=== PATIENT | female | born 2000 | race Caucasian/White ===

== ENCOUNTER 2020-01-09 12:44 | Emergency (ER) | payer MEDICAID, SELFPAY ==
[2020-01-09 12:59] VITALS: BP 120/60; PULSE 100; RESP 18; TEMP 36.1; O2SAT 98; BMI 23.3
--- NOTE | 2020-01-09 13:00 | XR_ITS ---
EXAMINATION: XR ANKLE, LEFT CLINICAL INFORMATION: Pain, no injury COMPARISON: None TECHNIQUE: AP, lateral, and mortise views of the left ankle. FINDINGS: There is no acute fracture or dislocation. There is normal bone mineral density. No erosions. The ankle mortise is intact. There is soft tissue swelling around the ankle/hindfoot. IMPRESSION: No acute bony abnormality of the left ankle. Soft tissue swelling around the ankle/hindfoot.
[2020-01-09] MEDS: Azithromycin 500 MG TABLET 1000 MG PO (13:37)
[2020-01-09] MEDS: Lidocaine HCl 1 % MPF 5 ML VIAL SUBCUT (13:39)
[2020-01-09 13:40] LABS: Glucose Urine UA NEG (NEG); Leukocyte Esterase Urine 1+ (NEG); Nitrite Urine POS (NEG); Urine Blood 3+ (NEG); Urine Ketones NEG (NEG); Urine Protein NEG (NEG-TRACE)
[2020-01-09 13:41] LABS: Appearance Urine CLOUDY; Color Urine YELLOW
[2020-01-09 13:43] LABS: UPreg QC Valid YES; Urine Pregnancy NEGATIVE (NEGATIVE)
[2020-01-09] MEDS: cefTRIAXone sodium 250 MG VIAL IM (13:44)
[2020-01-09 13:53] LABS: Bacteria Urine 4+ /LPF; Squamous Epithelial Cell Urine 4+ /LPF; Trichomonas Urine NOTED
--- NOTE | 2020-01-09 13:54 | ED_ITS ---
HPI - Female Genitourinary General Chief complaint: Urogenital-Female Stated complaint: std check l ankle pain Time Seen by Provider: 01/09/20 13:00 Source: patient Mode of arrival: ambulatory Limitations: no limitations History of Present Illness HPI Narrative: otherwise healthy 19-year-old female who is A0 her child is about 2 years old she otherwise denies any medical problems not currently taking other medications she presents today with multiple complaints 1. She reports that 1 of her friends whom is currently dating her ex boyfriend who she had intermittent relationship with and last time she had intercourse with him was in October but her friend called her today and told her that she had contracted chlamydia from her friend. States this made her concerned she wants to get tested and treated. She denies any symptoms in relation to this. No dysuria, vaginal discharge, lesions or rash. 2. She reports she has had left ankle pain for little over a year and a half and since she is here for this will likely take care of this as well. States he does not recall any injury but there is swelling and pain to the lateral of the ankle. She states that this has been going on for again little under 2 years. There is no obvious injury. She will have swelling and tenderness . There is no redness. No open areas. Patient : No Related Data Previous Rx's Medication Instructions Recorded nitrofurantoin monohyd/m-cryst 100 mg PO Q12H 5 Days #10 cap 01/09/20 [Macrobid] Allergies Allergy/AdvReac Type Severity Reaction Status Date / Time No Known Allergies Allergy Verified 01/09/20 13:01 [No Known Allergies*] Review of Systems Review of Systems: Constitutional: No Weight loss, No Fever, No Chills, No Night Sweats, No Fatigue, No Malaise ENT/Mouth: No Hearing loss, No Ear Pain, No Nasal Congestion, No Sinus Pain, No Hoarseness, No sore throat, No Rhinorrhea, No Swallowing Difficulty Eyes: No Eye Pain, No Swelling, No Redness, No Foreign Body, No Discharge, No Vision Changes Cardiovascular: No Chest Pain, No SOB, No Dyspnea on Exertion, No Orthopnea, No Edema, No Palpitations Respiratory: No Cough, No Sputum, No Wheezing, No Smoke Exposure, No Dyspnea Gastrointestinal: No Nausea, No Vomiting, No Diarrhea, No Constipation, No abdominal Pain, No Hematochezia, No Melena Genitourinary: no irregular bleeding, No Dysuria, No Urinary Frequency, No Hematuria, No Urinary Incontinence, No Urgency, No Flank Pain, No Urinary Flow Changes, No Hesitancy Musculoskeletal: As nnoted per HPI No Myalgias, No Joint Swelling Skin: No Skin Lesions, No rash Neuro: No Weakness, No Numbness, No Paresthesias, No Loss of Consciousness, No Dizziness, No Headache Psych: No Social Issues Heme/Lymph: No Bruising, No Bleeding,No Lymphadenopathy Endocrine: No Polyuria, No Polydipsia, No Temperature Intolerance Yes all other systems are reviewed and are negative [facility] Past Medical History Attestation statement: The following information was validated with the patient. Medical History (Updated 01/09/20 @ 14:07 by Mina Estrada NP) No known health problems No known health problems Social History Social History Advance Directives: No Advance Directives Information Provided: No Physical Exam Vital Signs: Vital Signs: Vital Signs Temp Pulse Resp BP Pulse Ox 01/09/20 12:59 97.0 F 100 18 120/60 98 Body Mass Index 23.3 reviewed Const: General: cooperative and healthy appearing; No acute distress or intoxicated appearing Nutritional Appearance: average body habitus Orientation/consciousness: patient oriented x3 Chest: Chest palpation & inspection: normal inspection of the chest Resp: Effort & Inspection: normal respiratory effort Cardio: Jugular venous distension: no JVD GI: Inspection: Yes normal to inspection Percussion: Yes normal to percussion Auscultation: normal bowel sounds : General: Yes no CVA tenderness Back/Spine/Pelvis: Back: no CVA tenderness Skin: General skin exam: no rashes or lesions noted Neuro: General: patient oriented x3 Extrem: General: Yes normal to inspection Course Course Course Narrative: Self swab for BV/ CT Claire. Requesting empiric treatment for chlamydia/gonorrhea. We will go ahead and treat her with ceftriaxone / azithromycin. UA appears overtly infected with positive nitrate although she is asymptomatic. Given azithromycin/ ceftriaxone here. Will discharge with Macrobid pending culture. Advised to abstain from any further sexual activity until she is cleared at health center for full panel STI testing. She will call [facility] for full panel STD testing. In relation to the x-ray there is no acute findings. Localized swelling unclear of etiology. No infectious process. Will refer her to her GP/Ortho.Stable for discharge. MDM - Female Genitourinary Lab Data Labs: Lab Results 01/09/20 01/09/20 Range/Units 13:23 13:23 Urine Color YELLOW Urine Appearance CLOUDY Urine pH 6.0 (5.0-8.0) Ur Specific [place] 1.020 (1.005-1.025) Urine Protein NEG (NEG-TRACE) MG/DL Urine Glucose (UA) NEG (NEG) MG/DL Urine Ketones NEG (NEG) MG/DL Urine Blood 3+ H (NEG) Urine Nitrite POS H (NEG) Ur Leukocyte Esterase 1+ H (NEG) Urine RBC 5-9 H (0) /HPF Urine WBC 5-9 H (0-4) /HPF Ur Squamous Epith Cells 4+ /LPF Urine Bacteria 4+ /LPF Urine Trichomonas NOTED Urine Test NEGATIVE (NEGATIVE) Discharge Plan Discharge Clinical Impression: Sexually transmitted disease (STD), Urinary tract infection, Acute ankle pain Patient Disposition: Home, Self-Care Instructions: Sexually Transmitted Diseases (ED), Arthralgia (ED) Additional Instructions: please follow-up with the health center as discussed for full panel STD testing today you were evaluated for 2 common STDs and treated empirically pending the results Take medication prescribed Return if any concerns or worsening symptoms Thank you Prescriptions: New nitrofurantoin monohyd/m-cryst [Macrobid] 100 mg capsule 100 mg PO Q12H 5 Days Qty: 10 RF: 0 Referrals: Physician,Unknown [Primary Care Provider] - 2 days ( your primary care doctor [facility] )
[2020-01-09 15:26] LABS: CT PCR NOT DETECTED (Not Detect.); NG PCR DETECTED (Not Detect.)
[2020-01-11 12:17] LABS: BV Int Neg Control Negative (Negative); BV Int Pos Control Positive (Positive)
== END 2020-01-09 14:21 | disposition home or self-care (01) ==
PROVIDERS: Nurse Practitioner Primary Care; Emergency Provider Emergency Medicine
DX: Z20.2 Contact with and (suspected) exposure to infections with a predominantly sexual mode of transmission (principal); N39.0 Urinary tract infection, site not specified; M25.572 Pain in left ankle and joints of left foot
CPT/HCPCS: 73610; 81001; 81025; 87480; 87491; 87510; 87591; 87660; 96372; 99283; 99284; J0696

== ENCOUNTER 2020-08-17 13:29 | Emergency (ER) | payer MEDICAID, SELFPAY ==
--- NOTE | ~2020-08-17 | XR_ITS ---
EXAMINATION: RIGHT HAND AND WRIST. CLINICAL INFORMATION: Trauma and pain. COMPARISON: None TECHNIQUE: 4 views. FINDINGS: There is no visible fracture, dislocation or subluxation seen. The joint spaces are maintained normal. The soft tissues are normal. XR/XR hand wrist RT IMPRESSION: Unremarkable right hand and wrist exam.
[2020-08-17 13:43] VITALS: BP 140/72; PULSE 120; PULSE 91; RESP 20; TEMP 36.2; O2SAT 100; O2SAT 99; BMI 24.7
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
--- NOTE | 2020-08-17 15:30 | PC.NURSE ---
Abe wrap applied to right wrist for comfort.
== END 2020-08-17 15:39 | disposition home or self-care (01) ==
PROVIDERS: Emergency Provider Emergency Medicine
DX: S09.90XA Unspecified injury of head, initial encounter (principal); S69.91XA Unspecified injury of right wrist, hand and finger(s), initial encounter; G44.309 Post-traumatic headache, unspecified, not intractable; M25.531 Pain in right wrist; Y04.8XXA Assault by other bodily force, initial encounter; Y93.9 Activity, unspecified; Y92.009 Unspecified place in unspecified non-institutional (private) residence as the place of occurrence of the external cause; Y99.9 Unspecified external cause status; Z79.899 Other long term (current) drug therapy
CPT/HCPCS: 73110; 73130; 99283

== ENCOUNTER 2021-10-10 08:03 | Outpatient (REF) | payer MEDICAID, SELFPAY | END 2021-10-10 08:04 | disposition home or self-care (01) | LOC: HO.HOSX 08:03 | PROVIDERS: Visit Provider Physician Assistant | DX: Z13.89 Encounter for screening for other disorder (principal) ==

== ENCOUNTER 2022-03-09 05:53 | Emergency (ER) | payer MEDICAID, SELFPAY ==
[2022-03-09 05:56] VITALS: BP 112/58; BP 136/84; PULSE 106; PULSE 92; RESP 16; TEMP 36.8; O2SAT 95; O2SAT 96; BMI 23.9
--- NOTE | 2022-03-09 06:02 | ED.NAVMDI ---
HPI - Nausea/Vomiting/Diarrhea General Chief complaint: Nausea/Vomiting/Diarrhea Stated complaint: Vomiting since Saturday/?fever Time Seen by Provider: 03/09/22 05:57 Source: patient and EMS Mode of arrival: EMS Limitations: no limitations History of Present Illness HPI Narrative: Patient comes to the emergency room complaining of nausea vomiting and diarrhea for 4 days. Patient states that 5 days ago she was diagnosed with influenza. Patient has been taking TheraFlu, [place] oral and [id number] medications. Patient states that she has no abdominal pain, but she cannot tolerate any p.o. fluids. This morning, patient states that she ate a piece of bread and did not vomit. Related Data Previous Rx's Medication Instructions Recorded nitrofurantoin 100 mg PO Q12H 5 days #10 caps 01/09/20 monohydrate/macrocrystals 100 mg capsule (Macrobid) metronidazole 500 mg tablet 500 mg PO BID BACTERIAL VAGINOSIS 01/13/20 (Flagyl) 7 days #14 tabs naproxen 500 mg tablet (Naprosyn) 500 mg PO BID #20 tabs 08/17/20 acetaminophen 500 mg capsule 500 mg PO Q6H PRN fever or pain 03/09/22 #20 caps loperamide 2 mg capsule 2 mg PO Q6H PRN loose stool #14 03/09/22 caps ondansetron 4 mg disintegrating 4 mg PO Q6H PRN nausea and 03/09/22 tablet vomiting #14 tabs Allergies Allergy/AdvReac Type Severity Reaction Status Date / Time No Known Allergies Allergy Verified 01/09/20 13:01 [No Known Allergies*] Review of Systems Review of Systems: Constitutional : No Weight loss, No Fever, No Chills, No Night Sweats, No Fatigue, No Malaise ENT/Mouth : No Hearing loss, No Ear Pain, No Nasal Congestion, No Sinus Pain, No Hoarseness, No sore throat, No Rhinorrhea, No Swallowing Difficulty Eyes: No Eye Pain, No Swelling, No Redness, No Foreign Body, No Discharge, No Vision Changes Cardiovascular : No Chest Pain, No SOB, No Dyspnea on Exertion, No Orthopnea, No Edema, No Palpitations Respiratory : No Cough, No Sputum, No Wheezing, No Smoke Exposure, No Dyspnea Gastrointestinal : Complaining of nausea, vomiting, diarrhea, no abdominal pain Genitourinary : no irregular bleeding, No Dysuria, No Urinary Frequency, No Hematuria, No Urinary Incontinence, No Urgency, No Flank Pain, No Urinary Flow Changes, No Hesitancy Musculoskeletal : No joint pain, No Myalgias, No Joint Swelling Skin : No Skin Lesions, No rash Neuro : No Weakness, No Numbness, No Paresthesias, No Loss of Consciousness, No Dizziness, No Headache Psych : No Anxiety/Panic, No Depression, No SI/HI/AH/VH, No Social Issues, Heme/Lymph: No Bruising, No Bleeding,No Lymphadenopathy Endocrine : No Polyuria, No Polydipsia, No Temperature Intolerance [facility] Past Medical History Medical History No known health problems No known health problems Social History Social History Alcohol intake: unknown Advance Directives: No Advance Directives Information Provided: Yes Physical Exam Vital Signs: Vital Signs: Last Vital Signs Temp 98.3 F 03/09/22 05:56 Pulse 85 03/09/22 06:38 Resp 16 03/09/22 06:38 BP 107/72 03/09/22 06:38 Pulse Ox 95 03/09/22 06:38 O2 Del Method 03/09/22 06:38 BMI result Body Mass Index 23.9 Const: Other: Appearance: Alert. Oriented X3. No acute distress. Eyes: Pupils equal, round and reactive to light. ENT: Pharynx normal. Neck: Normal inspection. Neck supple. No lymph nodes noted. No crepitus CVS: Normal heart rate and rhythm. Pulses normal. Normal S1 and S2 Respiratory: No respiratory distress. Breath sounds normal. No Wheezing. No rales Abdomen: Soft and nontender. No rigidity. No distention. Skin: Skin warm and dry. Normal skin color. Normal skin turgor. Extremities: No lower extremity edema. No Lacerations. No Rash Neuro: Oriented X 3. No motor deficit. No sensory deficit. Moving all extremities. No slurred speech. CN 2 through 12 grossly intact Psych: calm, cooperative, crying Course Course Course Narrative: Patient receiving IV fluids, loperamide and Zofran. All of patient's labs are pending. Patient's physical exam, patient is not tender, not distended, obstruction not suspected. Patient tested negative for COVID-19. Patient states that she feels better. Discussed the labs with the patient, patient ready for discharge. Medications Administered Generic Name Dose Route Start Last Admin Trade Name Freq PRN Reason Stop Dose Admin Sodium Chloride 2,000 mls @ 999 mls/hr 03/09/22 06:00 03/09/22 06:12 Ns IVCONT 03/09/22 08:00 999 mls/hr .Q2H1M ONE Administration Discontinued Medications Generic Name Dose Route Start Last Admin Trade Name Freq PRN Reason Stop Dose Admin Loperamide HCl 4 mg 03/09/22 06:00 03/09/22 06:18 Loperamide Hcl 2 Mg Capsule PO 03/09/22 06:01 4 mg ONCE ONE Administration Ondansetron HCl 4 mg 03/09/22 06:00 03/09/22 06:18 Ondansetron Hcl 4 Mg/2 Ml Vial IVPUSH 03/09/22 06:01 4 mg ONCE ONE Administration Medical Decision Making Differential Diagnosis Differential Diagnoses: The differential diagnosis associated with the presentation includes (COVID, influenza, gastroenteritis, viral syndrome) Lab Data MDM Lab Attestation statement: I reviewed the patient's lab results. Result Diagrams: 03/09/22 06:10 03/09/22 06:10 Labs: Lab Results 03/09/22 03/09/22 03/09/22 Range/Units 06:10 06:10 06:10 WBC 7.5 (4.8-10.8) X10*3/uL RBC 4.88 (4.20-5.50) X10*6/uL Hgb 14.7 (12.0-16.0) g/dl Hct 42.9 (37.0-47.0) % MCV 87.9 (80.0-98.0) fL MCH 30.1 (27.0-33.0) pg MCHC 34.3 (31.0-35.0) g/dl RDW 12.1 (11.0-16.0) % Plt Count 273 (160-400) X10*3/uL MPV 9.5 (9.4-12.3) fL Immature Gran % (Auto) 0.5 H (0.0-0.4) % Neut % (Auto) 75.5 H (45-73) % Lymph % (Auto) 15.0 L (20-40) % [place] % (Auto) 8.9 (2-11) % Eos % (Auto) 0.0 (0-4) % Baso % (Auto) 0.1 (0-2) % Lymph # (Auto) 1.1 L (1.2-4.9) X10*3/uL [place] # (Auto) 0.7 (0.1-1.2) X10*3/uL Eos # (Auto) 0.0 (0.0-0.4) X10*3/uL Baso # (Auto) 0.0 (0.0-0.2) X10*3/uL Abs Immat Gran (auto) 0.04 H (0.00-0.03) X10*3/uL Absolute Neuts (auto) 5.7 (2.0-8.3) x10*3/uL Absolute Nucleated RBC 0.000 (0.0-0.012) X10*3/uL Nucleated RBC % (auto) 0.0 (0.0-0.2) /100WBC Sodium 138 (135-145) mmol/L Potassium 3.7 (3.3-5.1) mmol/L Chloride 104 (96-108) mmol/L Carbon Dioxide 23 (22-29) mmol/L Anion Gap 15 (12-20) BUN 18 H (9-16) mg/dL Creatinine 0.74 (0.5-1.4) mg/dL Estim Creat Clear Calc 97.8 Estimated GFR > 60 Random Glucose 108 (60-115) mg/dL Calcium 9.3 (8.4-10.2) mg/dL Magnesium 2.3 (1.6-2.6) mg/dL Total Bilirubin 0.7 (0.0-1.0) mg/dL Direct Bilirubin 0.3 (0.0-0.5) mg/dL AST 18 (5-31) U/L ALT 10 (0-31) U/L Alkaline Phosphatase 63 (39-117) U/L Total Protein 8.4 H (6.5-8.0) g/dL Albumin 4.9 (3.5-5.0) g/dL Lipase 26 (8-78) U/L COVID-19 (MAGALYS) Negative (Negative) COVID-19 Clin Com See Note Discharge Plan Discharge Clinical Impression: Nausea vomiting and diarrhea, Acute viral syndrome Patient Disposition: Home, Self-Care Instructions: Acute Nausea and Vomiting (ED), Acute Diarrhea (ED) Additional Instructions: Please follow-up with your primary care physician tomorrow. If you have any worsening or new symptoms, please return to the emergency room or call 911 Prescriptions: New ondansetron 4 mg tablet,disintegrating 4 mg PO Q6H PRN (Reason: nausea and vomiting) Qty: 14 0RF loperamide 2 mg capsule 2 mg PO Q6H PRN (Reason: loose stool) Qty: 14 0RF acetaminophen 500 mg capsule 500 mg PO Q6H PRN (Reason: fever or pain) Qty: 20 0RF No Action nitrofurantoin monohyd/m-cryst [Macrobid] 100 mg capsule 100 mg PO Q12H 5 Days Qty: 10 0RF Rx Instructions: must administer with a meal/food metronidazole [Flagyl] 500 mg tablet 500 mg PO BID 7 Days Qty: 14 0RF naproxen [Naprosyn] 500 mg tablet 500 mg PO BID Qty: 20 0RF
[2022-03-09] MEDS: 0.9 % Sodium Chloride 2,000 ML 999 ML IVCONT (06:12)
[2022-03-09] MEDS: ondansetron HCL 4 MG/2 ML VIAL IVPUSH (06:18)
[2022-03-09] MEDS: Loperamide HCl 2 MG CAPSULE 4 MG PO (06:18)
[2022-03-09 06:20] LABS: MANUAL DIFF FLAG NO
[2022-03-09 06:27] LABS: Basophils Percent Auto 0.1 % (0-2); Hematocrit 42.9 % (37.0-47.0); Hemoglobin 14.7 g/dl (12.0-16.0); Imm Gran Abs Auto 0.04 X10*3/uL (0.00-0.03); Imm Gran Pct Auto 0.5 % (0.0-0.4); Lymphocytes Absolute Auto 1.1 X10*3/uL (1.2-4.9); Mean Corpuscular HGB Conc 34.3 g/dl (31.0-35.0); Mean Corpuscular Hemoglobin 30.1 pg (27.0-33.0); Mean Corpuscular Volume 87.9 fL (80.0-98.0); Mean Platelet Volume 9.5 fL (9.4-12.3); Monocytes Absolute Auto 0.7 X10*3/uL (0.1-1.2); Monocytes Percent Auto 8.9 % (2-11); Neutrophils Absolute Auto 5.7 x10*3/uL (2.0-8.3); Neutrophils Percent Auto 75.5 % (45-73); Platelet Count 273 X10*3/uL (160-400); Red Blood Count 4.88 X10*6/uL (4.20-5.50); Red Cell Distribution Width 12.1 % (11.0-16.0); White Blood Count 7.5 X10*3/uL (4.8-10.8)
[2022-03-09 06:34] LABS: COVID-19 Test Negative (Negative)
[2022-03-09 06:38] VITALS: BP 107/72; PULSE 85; RESP 16; O2SAT 95
[2022-03-09 06:49] LABS: Alanine Aminotransferase 10 U/L (0-31); Albumin Level 4.9 g/dL (3.5-5.0); Alkaline Phosphatase 63 U/L (39-117); Anion Gap 15 (12-20); Aspartate Amino Transferase 18 U/L (5-31); Bilirubin Direct 0.3 mg/dL (0.0-0.5); Bilirubin Total 0.7 mg/dL (0.0-1.0); Blood Urea Nitrogen 18 mg/dL (9-16); Calcium 9.3 mg/dL (8.4-10.2); Carbon Dioxide 23 mmol/L (22-29); Chloride 104 mmol/L (96-108); Creatinine Clr Calc Pharmacy 97.8; Estimated Glomerular Filt Rate > 60; Glucose Random 108 mg/dL (60-115); Lipase 26 U/L (8-78); Magnesium 2.3 mg/dL (1.6-2.6); Potassium 3.7 mmol/L (3.3-5.1); Sodium 138 mmol/L (135-145); Total Protein 8.4 g/dL (6.5-8.0)
[2022-03-09 07:29] LABS: Appearance Urine Clear; Color Urine Dark Yellow; Glucose Urine UA Negative (Negative); Leukocyte Esterase Urine Negative (Negative); Nitrite Urine Negative (Negative); Specific Gravity - Urine >= 1.030 (1.005-1.025); UMIC TRIGGER UACC YES; Urine Blood Moderate (2+) (Negative); Urine Ketones 80 mg/dL (Negative); Urine Protein 300 (3+) mg/dL (Neg-Trace)
[2022-03-09 07:33] LABS: Amphetamine Screen Urine Not Detected (Not Detect); Barbiturates, Urine Not Detected (Not Detect); Benzodiazepines Screen Urine Not Detected (Not Detect); Cannabinoid Screen Urine POSITIVE (Not Detect); Cocaine Screen Urine Not Detected (Not Detect); Fentanyl, urine Not Detected (Not Detect); Opiate Screen Urine Not Detected (Not Detect); Phencyclidine Screen Urine Not Detected (Not Detect)
[2022-03-09 07:38] LABS: Bacteria Urine None Seen (None Seen); RBC Urine >20 /HPF (0-2); WBC Urine 0-5 /HPF (0-5)
== END 2022-03-09 08:04 | disposition home or self-care (01) ==
PROVIDERS: Emergency Provider Emergency Medicine
DX: B34.9 Viral infection, unspecified (principal); R11.2 Nausea with vomiting, unspecified; R19.7 Diarrhea, unspecified; Z20.822 Contact with and (suspected) exposure to COVID-19; F12.90 Cannabis use, unspecified, uncomplicated
CPT/HCPCS: 80048; 80076; 80307; 81001; 83690; 83735; 85025; 87635; 96374; 99284; J2405

== ENCOUNTER 2022-03-10 16:11 | Emergency (ER) | payer MEDICAID, SELFPAY ==
--- NOTE | 2022-03-10 16:35 | ED_ITS ---
HPI - General Adult General Chief complaint: Nausea/Vomiting/Diarrhea Stated complaint: NAUSEA,VOMITINF,FLU LIKE SX PER EMS Time Seen by Provider: 03/10/22 16:34 Source: patient and EMS Mode of arrival: EMS Limitations: no limitations History of Present Illness HPI narrative: Patient is a 21 year old assigned female at with no reported medical history presenting to the emergency department today with nausea and vomiting. Patient states that she was seen here yesterday for vomiting and she was given Zofran but it isn't helping and she is still vomiting. Patient denies any dizziness, lightheadedness, abdominal pain, nausea, vomiting, fever, chills, blurry vision, double vision, loss of vision, chest pain, difficulty breathing, shortness of breath, back pain, night sweats, pain with urination, increased urinary frequency, increased urinary urgency, blood in her urine or stool, syncope or a near syncopal episode, recent trauma or falls, bowel incontinence, bladder incontinence, bowel retention, bladder retention, or any other complaints at this time. Onset (ago): day(s) (4) Severity: mild Severity scale (1-10): 3 Relieving factors: none Exacerbating factors: none Associated symptoms: nausea/vomiting Treatments prior to arrival: none Related Data Previous Rx's Medication Instructions Recorded nitrofurantoin 100 mg PO Q12H 5 days #10 caps 01/09/20 monohydrate/macrocrystals 100 mg capsule (Macrobid) metronidazole 500 mg tablet 500 mg PO BID BACTERIAL VAGINOSIS 01/13/20 (Flagyl) 7 days #14 tabs naproxen 500 mg tablet (Naprosyn) 500 mg PO BID #20 tabs 08/17/20 acetaminophen 500 mg capsule 500 mg PO Q6H PRN fever or pain 03/09/22 #20 caps loperamide 2 mg capsule 2 mg PO Q6H PRN loose stool #14 03/09/22 caps ondansetron 4 mg disintegrating 4 mg PO Q6H PRN nausea and 03/09/22 tablet vomiting #14 tabs promethazine 12.5 mg tablet 12.5 mg PO TID PRN nausea and 03/10/22 vomiting #14 tabs Allergies Allergy/AdvReac Type Severity Reaction Status Date / Time No Known Allergies Allergy Verified 01/09/20 13:01 [No Known Allergies*] Review of Systems Constitutional: Constitutional: Reports no additional constitutional complaints, Denies chills, Denies fever(s) and Denies night sweats Eyes: Eyes: Reports no additional eye complaints, Denies blurry vision, Denies change in vision, Denies diplopia, Denies eye discharge, Denies loss of vision and Denies eye pain ENT: Denies dizziness Cardiovascular: Cardiovascular: Reports no additional cardiovascular complaints, Denies chest pain, Denies lightheadedness, Denies Loss of Consciousness and Denies dyspnea Respiratory: Respiratory: Reports no additional respiratory complaints and Denies dyspnea Gastrointestinal: Gastrointestinal: Reports no additional gastrointestinal complaints, Denies abdominal pain, Denies melena, Denies hematochezia, Denies change in bowel habits, Denies change in stool character, Reports nausea and Reports vomiting Genitourinary: Genitourinary: Denies hematuria, Denies urinary frequency, Denies dysuria, Denies urinary incontinence, Denies urinary hesitancy and Denies urinary urgency Musculoskeletal: Musculoskeletal: Reports no additional musculoskeletal complaints, Denies numbness and Denies tingling Neurologic: Denies dizziness, Denies loss of vision, Denies numbness and Denies tingling Psychiatric: Psychiatric: Reports no additional psychiatric complaints Endocrine: Endocrine: Reports no additional endocrine complaints Hematologic/Lymphatic: Hematologic/Lymphatic: Reports no additional hematologic/lymphatic complaints Allergic/Immunologic: Allergic/Immunologic: Reports no additional allergic/immunologic complaints PMFSH Past Medical History Attestation statement: The following information was validated with the patient. Source: old records reviewed and nursing notes reviewed Medical History No known health problems No known health problems Social History Social History Alcohol intake: never Smoked in Last 30 Days: No Use of substances other than those prescribed or required for medical reasons: Yes Substance Use Type: Marijuana Substance Use Frequency: Daily Advance Directives: No Advance Directives Information Provided: No Physical Exam ED Vital Signs: Vital Signs - 24 hr 03/10/22 16:45 03/10/22 19:47 03/10/22 20:21 Temperature 98.8 F Pulse Rate 83 53 90 Respiratory Rate 18 17 18 Blood Pressure 110/69 107/68 106/58 L Pulse Oximetry 97 94 93 Oxygen Delivery Method Room Air Room Air Nasal Cannula Oxygen Flow Rate 2 BMI result Body Mass Index 23.0 Const General: cooperative, no acute distress, alert and awake Nutritional Appearance: well nourished Orientation/consciousness: patient oriented x3 Limitations: no limitations HENMT Head: Yes normal to inspection and Yes atraumatic Ears: hearing grossly normal bilaterally and external ears normal General nose exam: Normal external nose present, no nasal discharge noted and no epistaxis Face and sinus: Yes normal facial exam, No abrasion and No laceration Mouth: Normal oral and palatal mucosa present, no drooling and no muffled voice Eyes General: appearance normal, both eyes and all related structures Periorbital: periorbital findings normal Eyelids: Yes eyelids normal Conjunctivae: conjunctivae normal Pupils: Equal, round and reactive pupils present EOM: EOMs intact bilaterally Neck Neck: Yes normal visual inspection, Yes full ROM and Yes no lymphadenopathy Chest Chest palpation & inspection: normal inspection of the chest Resp Effort & Inspection: normal respiratory effort and able to speak in complete sentences Auscultation: clear to auscultation bilaterally Cardio Rate: regular rate Rhythm: regular rhythm GI Inspection: Yes normal to inspection Palpation (GI): Soft to palpation, not firm, nontender, no guarding and not rigid Neuro General: patient oriented x3 and moves all extremities Cranial nerves: Yes Equal, round and reactive pupils present Cognition (Neuro): normal cognition Motor exam (neuro): 5/5 motor strength present throughout Sensory Exam: Normal double simultaneous stimulation for sensation Coordination: [id number] test normal Extrem General: Yes normal to inspection, Yes full ROM and Yes capillary refill normal Psych Appearance: grossly normal Mental Status: mental status grossly normal Affect: normal affect Attitude: cooperative Thought process: Normal thought process present Thought content: Normal thought content present Insight: Good insight present (Psych) Medications Administered Discontinued Medications Generic Name Dose Route Start Last Admin Trade Name Freq PRN Reason Stop Dose Admin Benzonatate 100 mg 03/10/22 18:35 03/10/22 20:08 Benzonatate 100 Mg Capsule PO 03/10/22 18:36 Not Given ONCE ONE Sodium Chloride 1,000 mls @ 999 mls/hr 03/10/22 17:00 03/10/22 17:02 Ns IV 03/10/22 18:00 999 mls/hr .Q1H1M MARISELA Administration Promethazine HCl 12.5 mg/ 50.5 mls @ 202 mls/hr 03/10/22 17:52 03/10/22 18:33 Sodium Chloride IV 03/10/22 17:53 202 mls/hr ONCE ONE Administration Ondansetron HCl 4 mg 03/10/22 16:37 03/10/22 16:48 Ondansetron Odt 4 Mg Tab.Rapdis TRANSLINGU 03/10/22 16:38 4 mg ONCE ONE Administration Ondansetron HCl 4 mg 03/10/22 16:56 03/10/22 17:02 Ondansetron Hcl 4 Mg/2 Ml Vial IVPUSH 03/10/22 16:57 4 mg ONCE ONE Administration Medical Decision Making Medical Decision Making [facility] Narrative: Patient is a 21 year old assigned female at with no reported medical history presenting to the emergency department today with nausea and vomiting. Patient's physical exam was unremarkable. Patient's influenza swab was positive. Patient's urine showed a possible UTI however, the patient is denying any symptoms. Will wait for culture to result before prescribing anything. I explained my physical exam findings as well as all test results to the patient. I answered all questions asked by the patient. Patient received IV fluids and IV anti-emetics which she stated helped her symptoms significantly. I stressed the importance of the patient taking her medication as prescribed. I stressed the importance of the patient following up with her primary care provider. I stressed the importance of the patient returning to the emergency department immediately if her symptoms were to worsen or if she] were to develop any dizziness, shortness of breath, difficulty breathing, chest pain, blurry vision, loss of vision, nausea, vomiting, abdominal pain, fever, chills, back pain, or any other complaints. Patient verbalized agreement and understanding with this treatment plan and discharge. Differential Diagnosis Differential Diagnoses: The differential diagnosis associated with the presentation includes influenza Lab Data [facility] Lab Attestation statement: I reviewed the patient's lab results. Labs: Lab Results 03/10/22 03/10/22 03/10/22 Range/Units 16:44 17:39 17:39 Urine Color Dark Yellow Urine Appearance Cloudy Urine pH 6.0 (5.0-9.0) Ur Specific [place] >= 1.030 H (1.005-1.025) Urine Protein 100 (2+) H (Neg-Trace) mg/dL Urine Glucose (UA) Negative (Negative) mg/dL Urine Ketones >=160 (Negative) mg/dL Urine Blood Moderate (2+) H (Negative) Urine Nitrite Negative (Negative) Ur Leukocyte Esterase Trace H (Negative) Urine RBC 11-20 H (0-2) /HPF Urine WBC 6-10 H (0-5) /HPF Ur Squamous Epith Cells >20 (0-2) /HPF Urine Bacteria None Seen (None Seen) Hyaline Casts 0-2 (0-2) /LPF Urine Test NEGATIVE (NEGATIVE) Influenza Type A (PCR) POSITIVE A (Negative) Influenza Type B (PCR) NEGATIVE (Negative) RSV RNA Qual (PCR) NEGATIVE (Negative) SARS-CoV-2 RNA (RT-PCR) NEGATIVE (Negative) Discharge Plan Discharge Clinical Impression: Influenza Patient Disposition: Home, Self-Care Instructions: Influenza (ED) Additional Instructions: Follow up with your primary care provider. Return to the emergency department immediately if your symptoms worsen or if you develop any dizziness, shortness of breath, difficulty breathing, chest pain, blurry vision, loss of vision, nausea, vomiting, abdominal pain, fever, chills, back pain, or any other complaints. Prescriptions: New promethazine 12.5 mg tablet 12.5 mg PO TID PRN (Reason: nausea and vomiting) Qty: 14 0RF Rx Instructions: 3 doses during day; last dose no later than 4 hr before bedtime No Action nitrofurantoin monohyd/m-cryst [Macrobid] 100 mg capsule 100 mg PO Q12H 5 Days Qty: 10 0RF Rx Instructions: must administer with a meal/food metronidazole [Flagyl] 500 mg tablet 500 mg PO BID 7 Days Qty: 14 0RF naproxen [Naprosyn] 500 mg tablet 500 mg PO BID Qty: 20 0RF ondansetron 4 mg tablet,disintegrating 4 mg PO Q6H PRN (Reason: nausea and vomiting) Qty: 14 0RF loperamide 2 mg capsule 2 mg PO Q6H PRN (Reason: loose stool) Qty: 14 0RF acetaminophen 500 mg capsule 500 mg PO Q6H PRN (Reason: fever or pain) Qty: 20 0RF Referrals: [facility] [Provider Group] (Call to establish and follow up with a primary care provider. If you already have a primary care provider, please follow up with them. ) [facility] [Provider Group] (Call to establish and follow up with a primary care provider. If you already have a primary care provider, please follow up with them. ) [facility] [Provider Group] (Call to establish and follow up with a primary care provider. If you already have a primary care provider, please follow up with them. ) Stand Alone Forms: Work/School Release Interventions: ED Discharge Assessment Last Done: 03/10/22 20:33 Discharge Date/Time: 03/10/22 20:35 Print Language: Greek
[2022-03-10 16:42] VITALS: BMI 23.0
[2022-03-10 16:45] VITALS: BP 110/69; PULSE 83; RESP 18; O2SAT 97
[2022-03-10] MEDS: Ondansetron ODT 4 MG TAB.RAPDIS TRANSLINGU (16:48)
[2022-03-10] MEDS: ondansetron HCL 4 MG/2 ML VIAL IVPUSH (17:02)
[2022-03-10] MEDS: 0.9 % Sodium Chloride 1,000 ML 999 ML IV (17:02)
[2022-03-10 17:40] LABS: Influenza A PCR POSITIVE (Negative); Influenza B PCR NEGATIVE (Negative); Resp Syncy Virus RNA Qual PCR NEGATIVE (Negative); SARS COV2 PCR INHOUSE NEGATIVE (Negative)
[2022-03-10 17:48] LABS: UPreg QC Valid YES; Urine Pregnancy NEGATIVE (NEGATIVE)
[2022-03-10 17:49] LABS: Appearance Urine Cloudy; Color Urine Dark Yellow; Glucose Urine UA Negative (Negative); Leukocyte Esterase Urine Trace (Negative); Nitrite Urine Negative (Negative); Specific Gravity - Urine >= 1.030 (1.005-1.025); UMIC TRIGGER UACC YES; Urine Blood Moderate (2+) (Negative); Urine Ketones >=160 mg/dL (Negative); Urine Protein 100 (2+) mg/dL (Neg-Trace)
[2022-03-10 17:52] LABS: Bacteria Urine None Seen (None Seen); Hyaline Casts Urine 0-2 /LPF (0-2); Squamous Epithelial Cell Urine >20 /HPF (0-2); UACC Culture Trigger YES
[2022-03-10 19:47] VITALS: BP 107/68; PULSE 53; RESP 17; TEMP 37.1; O2SAT 94
[2022-03-10 20:21] VITALS: BP 106/58; PULSE 90; RESP 18; O2SAT 93
--- NOTE | 2022-03-10 20:33 | PC.NURSE ---
Last VS entered in error wrong pt
== END 2022-03-10 20:35 | disposition home or self-care (01) ==
PROVIDERS: Physician Assistant Medical; Emergency Provider Emergency Medicine
DX: J11.1 Influenza due to unidentified influenza virus with other respiratory manifestations (principal); R11.2 Nausea with vomiting, unspecified; Z20.822 Contact with and (suspected) exposure to COVID-19; F12.90 Cannabis use, unspecified, uncomplicated
CPT/HCPCS: 0241U; 81001; 81025; 87086; 96374; 96375; 99284; J2405; J2550

== ENCOUNTER 2022-03-14 00:35 | Emergency (ER) | payer MEDICAID, SELFPAY ==
--- NOTE | ~2022-03-14 | XR_ITS ---
EXAMINATION: XR CHEST CLINICAL INFORMATION: Cough COMPARISON: None TECHNIQUE: Frontal view of the chest was obtained. FINDINGS: The lungs are clear with no focal consolidation. No evidence of pneumothorax, pulmonary edema, or pleural effusions. The cardiomediastinal silhouette is unremarkable. No acute osseous findings. XR/XR chest 1V IMPRESSION: No acute cardiopulmonary findings.
[2022-03-14 00:39] VITALS: BP 136/88; PULSE 87; RESP 17; TEMP 37.1; O2SAT 96; BMI 21.2
[2022-03-14 01:34] LABS: MANUAL DIFF FLAG NO
[2022-03-14 01:35] LABS: Basophils Percent Auto 0.2 % (0-2); Hematocrit 45.5 % (37.0-47.0); Hemoglobin 15.3 g/dl (12.0-16.0); Imm Gran Abs Auto 0.05 X10*3/uL (0.00-0.03); Imm Gran Pct Auto 0.4 % (0.0-0.4); Lymphocytes Absolute Auto 2.4 X10*3/uL (1.2-4.9); Mean Corpuscular HGB Conc 33.6 g/dl (31.0-35.0); Mean Corpuscular Hemoglobin 29.6 pg (27.0-33.0); Mean Platelet Volume 9.5 fL (9.4-12.3); Monocytes Absolute Auto 1.1 X10*3/uL (0.1-1.2); Neutrophils Absolute Auto 9.7 x10*3/uL (2.0-8.3); Neutrophils Percent Auto 73.4 % (45-73); Platelet Count 510 X10*3/uL (160-400); Red Blood Count 5.17 X10*6/uL (4.20-5.50); Red Cell Distribution Width 12.2 % (11.0-16.0); White Blood Count 13.2 X10*3/uL (4.8-10.8)
[2022-03-14 01:48] LABS: Alanine Aminotransferase 14 U/L (0-31); Albumin Level 5.2 g/dL (3.5-5.0); Alkaline Phosphatase 58 U/L (39-117); Anion Gap 20 (12-20); Aspartate Amino Transferase 14 U/L (5-31); Bilirubin Total 0.9 mg/dL (0.0-1.0); Blood Urea Nitrogen 40 mg/dL (9-16); Calcium 10.2 mg/dL (8.4-10.2); Carbon Dioxide 31 mmol/L (22-29); Chloride 104 mmol/L (96-108); Creatinine Clr Calc Pharmacy 76.9; Estimated Glomerular Filt Rate > 60; Glucose Random 134 mg/dL (60-115); Lipase 28 U/L (8-78); Magnesium 3.3 mg/dL (1.6-2.6); Potassium 3.3 mmol/L (3.3-5.1); Sodium 152 mmol/L (135-145); Total Protein 8.8 g/dL (6.5-8.0)
[2022-03-14 03:07] VITALS: BP 143/91; PULSE 79; RESP 18; TEMP 36.6; O2SAT 95
[2022-03-14] MEDS: Ondansetron ODT 4 MG TAB.RAPDIS SUBLINGUAL (03:33)
--- NOTE | 2022-03-14 03:35 | ED.NAVMDI ---
HPI - Nausea/Vomiting/Diarrhea General Chief complaint: Nausea/Vomiting/Diarrhea Stated complaint: FLU LIKE SYMPTOMS [id number] Time Seen by Provider: 03/14/22 03:35 Source: patient Mode of arrival: EMS Limitations: no limitations History of Present Illness HPI Narrative: Patient with influenza a diagnosed 2 days ago comes here for vomiting with cough. Patient has Zofran at home but has not taken it patient also complaining of epigastric pain after vomiting and vaginal bleeding which started today patient had urine done on 03/10 which was negative Related Data Previous Rx's Medication Instructions Recorded nitrofurantoin 100 mg PO Q12H 5 days #10 caps 01/09/20 monohydrate/macrocrystals 100 mg capsule (Macrobid) metronidazole 500 mg tablet 500 mg PO BID BACTERIAL VAGINOSIS 01/13/20 (Flagyl) 7 days #14 tabs naproxen 500 mg tablet (Naprosyn) 500 mg PO BID #20 tabs 08/17/20 acetaminophen 500 mg capsule 500 mg PO Q6H PRN fever or pain 03/09/22 #20 caps loperamide 2 mg capsule 2 mg PO Q6H PRN loose stool #14 03/09/22 caps ondansetron 4 mg disintegrating 4 mg PO Q6H PRN nausea and 03/09/22 tablet vomiting #14 tabs promethazine 12.5 mg tablet 12.5 mg PO TID PRN nausea and 03/10/22 vomiting #14 tabs Allergies Allergy/AdvReac Type Severity Reaction Status Date / Time No Known Allergies Allergy Verified 01/09/20 13:01 [No Known Allergies*] Review of Systems Review of Systems: Yes all other systems are reviewed and are negative [facility] Past Medical History Medical History No known health problems No known health problems Social History Social History Alcohol intake: never Smoked in Last 30 Days: No Use of substances other than those prescribed or required for medical reasons: Yes Substance Use Type: Marijuana Advance Directives: No Advance Directives Information Provided: No Patient : No Physical Exam Vital Signs: Vital Signs: Last Vital Signs Temp 97.9 F 03/14/22 03:07 Pulse 79 03/14/22 03:07 Resp 18 03/14/22 03:07 BP 143/91 H 03/14/22 03:07 Pulse Ox 95 03/14/22 03:07 O2 Del Method 03/14/22 03:07 BMI result Body Mass Index 21.2 Appearance: Alert. Oriented X3. No acute distress. Eyes: No pallor or icterus ENT: Pharynx normal. Oral Mucosa moist Neck: Normal inspection. Neck supple. CVS: Normal heart rate and rhythm. Pulses normal. Respiratory: No respiratory distress. Equal air entry bilateral, no wheezing/rales/rhonchi Abdomen: Soft and nontender. Bowel sounds are present, no mass palpable, no CVA tenderness Skin: Skin warm and dry. Normal skin color. Normal skin turgor. Extremities: No lower extremity edema. No calf tenderness Neuro: Oriented X 3. No motor deficit. Medications Administered Discontinued Medications Generic Name Dose Route Start Last Admin Trade Name Freq PRN Reason Stop Dose Admin Guaifenesin/Codeine Phosphate 10 ml 03/14/22 03:39 03/14/22 03:50 Guaifen/Codeine Sf 200/20/10ml 10 Ml Liquid PO 03/14/22 03:40 10 ml ONCE ONE Administration Ondansetron HCl 4 mg 03/14/22 03:16 03/14/22 03:33 Ondansetron Odt 4 Mg Tab.Rapdis SUBLINGUAL 03/14/22 03:17 4 mg ONCE ONE Administration Medical Decision Making Medical Decision Making [facility] Narrative: Patient feeling better taking p.o. fluids after Zofran sublingual discharge patient home advised to follow up with PCP Lab Data [facility] Lab Attestation statement: I reviewed the patient's lab results. Result Diagrams: 03/14/22 01:28 03/14/22 01:28 Labs: Lab Results 03/14/22 03/14/22 Range/Units 01:28 01:28 WBC 13.2 H (4.8-10.8) X10*3/uL RBC 5.17 (4.20-5.50) X10*6/uL Hgb 15.3 (12.0-16.0) g/dl Hct 45.5 (37.0-47.0) % MCV 88.0 (80.0-98.0) fL MCH 29.6 (27.0-33.0) pg MCHC 33.6 (31.0-35.0) g/dl RDW 12.2 (11.0-16.0) % Plt Count 510 H D (160-400) X10*3/uL MPV 9.5 (9.4-12.3) fL Immature Gran % (Auto) 0.4 (0.0-0.4) % Neut % (Auto) 73.4 H (45-73) % Lymph % (Auto) 18.0 L (20-40) % Centre % (Auto) 8.0 (2-11) % Eos % (Auto) 0.0 (0-4) % Baso % (Auto) 0.2 (0-2) % Lymph # (Auto) 2.4 (1.2-4.9) X10*3/uL Centre # (Auto) 1.1 (0.1-1.2) X10*3/uL Eos # (Auto) 0.0 (0.0-0.4) X10*3/uL Baso # (Auto) 0.0 (0.0-0.2) X10*3/uL Abs Immat Gran (auto) 0.05 H (0.00-0.03) X10*3/uL Absolute Neuts (auto) 9.7 H (2.0-8.3) x10*3/uL Absolute Nucleated RBC 0.000 (0.0-0.012) X10*3/uL Nucleated RBC % (auto) 0.0 (0.0-0.2) /100WBC Sodium 152 H (135-145) mmol/L Potassium 3.3 (3.3-5.1) mmol/L Chloride 104 (96-108) mmol/L Carbon Dioxide 31 H (22-29) mmol/L Anion Gap 20 (12-20) BUN 40 H (9-16) mg/dL Creatinine 0.94 (0.5-1.4) mg/dL Estim Creat Clear Calc 76.9 Estimated GFR > 60 Random Glucose 134 H (60-115) mg/dL Calcium 10.2 D (8.4-10.2) mg/dL Magnesium 3.3 H (1.6-2.6) mg/dL Total Bilirubin 0.9 (0.0-1.0) mg/dL AST 14 (5-31) U/L ALT 14 (0-31) U/L Alkaline Phosphatase 58 (39-117) U/L Total Protein 8.8 H (6.5-8.0) g/dL Albumin 5.2 H (3.5-5.0) g/dL Lipase 28 (8-78) U/L Discharge Plan Discharge Clinical Impression: Influenza A, Vomiting Patient Disposition: Home, Self-Care Instructions: Influenza (ED), Acute Nausea and Vomiting (ED) Additional Instructions: Drink plenty of fluids Take Nausea medication as prescribed at previous visit Tylenol/Motrin for fever Follow with PCP if not better Prescriptions: No Action nitrofurantoin monohyd/m-cryst [Macrobid] 100 mg capsule 100 mg PO Q12H 5 Days Qty: 10 0RF Rx Instructions: must administer with a meal/food metronidazole [Flagyl] 500 mg tablet 500 mg PO BID 7 Days Qty: 14 0RF naproxen [Naprosyn] 500 mg tablet 500 mg PO BID Qty: 20 0RF promethazine 12.5 mg tablet 12.5 mg PO TID PRN (Reason: nausea and vomiting) Qty: 14 0RF Rx Instructions: 3 doses during day; last dose no later than 4 hr before bedtime ondansetron 4 mg tablet,disintegrating 4 mg PO Q6H PRN (Reason: nausea and vomiting) Qty: 14 0RF loperamide 2 mg capsule 2 mg PO Q6H PRN (Reason: loose stool) Qty: 14 0RF acetaminophen 500 mg capsule 500 mg PO Q6H PRN (Reason: fever or pain) Qty: 20 0RF
[2022-03-14] MEDS: guaiFEN/Codeine SF 200/20/10ML 10 ML LIQUID PO (03:50)
== END 2022-03-14 04:42 | disposition home or self-care (01) ==
PROVIDERS: Emergency Provider Internal Medicine
DX: J11.1 Influenza due to unidentified influenza virus with other respiratory manifestations (principal); R11.10 Vomiting, unspecified; F12.90 Cannabis use, unspecified, uncomplicated
CPT/HCPCS: 36415; 71045; 80053; 83690; 83735; 85025; 99283; 99284

== ENCOUNTER 2022-04-13 09:06 | Emergency (ER) | payer MEDICAID, SELFPAY ==
[2022-04-13 09:07] VITALS: BP 129/89; PULSE 104; RESP 18; TEMP 36.1; O2SAT 99; BMI 24.5
--- NOTE | 2022-04-13 09:48 | ED.GENADULT ---
HPI - General Adult General Chief complaint: General Medical <Liudmila Hardy NP - Last Filed: 04/13/22 11:44> Stated complaint: nausea no smell missed period <Liudmila Hardy NP - Last Filed: 04/13/22 11:44> Time Seen by Provider: 04/13/22 09:20 <Liudmila Hardy NP - Last Filed: 04/13/22 11:44> Source: patient <Liudmila Hardy NP - Last Filed: 04/13/22 11:44> Mode of arrival: ambulatory <Liudmila Hardy NP - Last Filed: 04/13/22 11:44> Limitations: no limitations <Liudmila Hardy NP - Last Filed: 04/13/22 11:44> History of Present Illness HPI narrative: 21-year-old female healthy here because she is current concerned that she may be . Patient reports she 7 days late for her menses. She is currently sexually active with her boyfriend and does not use any contraception. She is trying to get . She reports she has had some nausea and breast sensitivity. She has a 4-year-old child. No other pregnancies. She did do a test at home 2 weeks ago which was negative. She has not done any other test and states I cant afford to buy one. <Liudmila Hardy NP - Last Filed: 04/13/22 11:44> Related Data Home medications: Previous Rx's Medication Instructions Recorded nitrofurantoin 100 mg PO Q12H 5 days #10 caps 01/09/20 monohydrate/macrocrystals 100 mg capsule (Macrobid) metronidazole 500 mg tablet 500 mg PO BID BACTERIAL VAGINOSIS 01/13/20 (Flagyl) 7 days #14 tabs naproxen 500 mg tablet (Naprosyn) 500 mg PO BID #20 tabs 08/17/20 acetaminophen 500 mg capsule 500 mg PO Q6H PRN fever or pain 03/09/22 #20 caps loperamide 2 mg capsule 2 mg PO Q6H PRN loose stool #14 03/09/22 caps ondansetron 4 mg disintegrating 4 mg PO Q6H PRN nausea and 03/09/22 tablet vomiting #14 tabs promethazine 12.5 mg tablet 12.5 mg PO TID PRN nausea and 03/10/22 vomiting #14 tabs <Liudmila Hardy NP - Last Filed: 04/13/22 11:44> Allergies/adverse reactions: Allergies Allergy/AdvReac Type Severity Reaction Status Date / Time No Known Allergies Allergy Verified 01/09/20 13:01 [No Known Allergies*] <Liudmila Hardy NP - Last Filed: 04/13/22 11:44> Review of Systems Review of Systems: Yes all other systems are reviewed and are negative <Liudmila Hardy NP - Last Filed: 04/13/22 11:44> Constitutional: Constitutional: Reports no additional constitutional complaints, Denies body ache(s), Denies chills, Denies fever(s), Denies headache(s) and Denies weakness <Liudmila Hardy NP - Last Filed: 04/13/22 11:44> Eyes: Eyes: Reports no additional eye complaints and Denies change in vision <Liudmila Hardy NP - Last Filed: 04/13/22 11:44> ENT: Reports system reviewed and no additional complaints, except as documented, Denies dizziness, Denies headache(s), Denies nasal congestion, Denies nasal discharge and Denies neck pain <Liudmila Hardy NP - Last Filed: 04/13/22 11:44> Cardiovascular: Cardiovascular: Reports no additional cardiovascular complaints, Denies chest pain, Denies leg edema and Denies dyspnea <Liudmila Hardy NP - Last Filed: 04/13/22 11:44> Respiratory: Respiratory: Reports no additional respiratory complaints, Denies cough and Denies dyspnea <Liudmila Hardy NP - Last Filed: 04/13/22 11:44> Gastrointestinal: Gastrointestinal: Reports no additional gastrointestinal complaints, Denies abdominal pain, Denies diarrhea, Reports nausea and Denies vomiting <Liudmila Hardy NP - Last Filed: 04/13/22 11:44> Genitourinary: Genitourinary: Reports no additional female genitourinary complaints and Denies urinary incontinence <Liudmila Hardy NP - Last Filed: 04/13/22 11:44> Musculoskeletal: Musculoskeletal: Reports no additional musculoskeletal complaints, Denies back pain, Denies arthralgias, Denies joint swelling, Denies neck pain, Denies numbness and Denies tingling <Liudmila Hardy NP - Last Filed: 04/13/22 11:44> Integumentary/Breasts: Skin/Breast: Reports system reviewed and no additional complaints, except as docu and Denies rash <Liudmila Hardy NP - Last Filed: 04/13/22 11:44> Neurologic: Reports system reviewed and no additional complaints, except as documented, Denies dizziness, Denies headache(s), Denies numbness, Denies tingling and Denies weakness <Liudmlia Hardy NP - Last Filed: 04/13/22 11:44> [facility] Past Medical History Attestation statement: The following information was validated with the patient. <Liudmila Hardy NP - Last Filed: 04/13/22 11:44> Source: old records reviewed and nursing notes reviewed <Liudmila Hardy NP - Last Filed: 04/13/22 11:44> Medical History: Medical History No known health problems No known health problems <Liudmila Hardy NP - Last Filed: 04/13/22 11:44> Social History Social History: Social History Alcohol intake: never Substance Use Type: Marijuana Advance Directives: No Advance Directives Information Provided: Yes <Liudmila Hardy NP - Last Filed: 04/13/22 11:44> Physical Exam ED Vital Signs: Vital Signs - 24 hr 04/13/22 09:07 04/13/22 10:58 Temperature 97.0 F 97.2 F Pulse Rate 104 H 63 Respiratory Rate 18 14 Blood Pressure 129/89 111/57 L Pulse Oximetry 99 100 Oxygen Delivery Method Room Air Room Air BMI result Body Mass Index 24.5 <iLudmila Hardy NP - Last Filed: 04/13/22 11:44> Vital Signs - 24 hr 04/13/22 09:07 04/13/22 10:58 Temperature 97.0 F 97.2 F Pulse Rate 104 H 63 Respiratory Rate 18 14 Blood Pressure 129/89 111/57 L Pulse Oximetry 99 100 Oxygen Delivery Method Room Air Room Air BMI result Body Mass Index 24.5 <Thomas Allen MD - Last Filed: 04/13/22 16:07> Const General: cooperative, healthy appearing, comfortable and no acute distress <Liudmila Hardy NP - Last Filed: 04/13/22 11:44> Orientation/consciousness: patient oriented x3 <Liudmila Hardy NP - Last Filed: 04/13/22 11:44> Limitations: no limitations <Liudmila Hardy NP - Last Filed: 04/13/22 11:44> HENMT Head: Yes normal to inspection <Liudmila Hardy NP - Last Filed: 04/13/22 11:44> Ears: hearing grossly normal bilaterally <Liudmila Hardy NP - Last Filed: 04/13/22 11:44> Eyes General: appearance normal, both eyes and all related structures <Liudmila Hardy NP - Last Filed: 04/13/22 11:44> Neck Neck: Yes normal visual inspection <Liudmila Hardy NP - Last Filed: 04/13/22 11:44> Chest Chest palpation & inspection: normal inspection of the chest <Liudmila Hardy NP - Last Filed: 04/13/22 11:44> Resp Effort & Inspection: normal respiratory effort <Liudmila Hardy NP - Last Filed: 04/13/22 11:44> Cardio Peripheral pulses: Peripheral pulses 2+ throughout <Liudmila Hardy NP - Last Filed: 04/13/22 11:44> GI Inspection: Yes normal to inspection <Liudmila Hardy NP - Last Filed: 04/13/22 11:44> Skin General skin exam: no rashes or lesions noted <Liudmila Hardy NP - Last Filed: 04/13/22 11:44> Neuro General: patient oriented x3 and moves all extremities <Liudmila Hardy NP - Last Filed: 04/13/22 11:44> Cognition (Neuro): normal cognition <Liudmila Hardy NP - Last Filed: 04/13/22 11:44> Gait exam (Neuro): Normal gait present <Liudmila Hardy NP - Last Filed: 04/13/22 11:44> Course Course Course Narrative: Urine negative. Recommended patient retest in several days she continues to have late cycle. Patient informed of free clinics in the region that to testing. Reviewed worrisome signs and symptoms of when to return to the emergency room. Comfortable plan for discharge home. <Liudmila Hardy NP - Last Filed: 04/13/22 11:44> Medical Decision Making Medical Decision Making MDM Narrative: 21 yo female here with concern for with complaints of 7 days late for menses, nausea, breast tenderness. Will send ur preg <Liudmila Hardy NP - Last Filed: 04/13/22 11:44> Differential Diagnosis Differential Diagnoses: The differential diagnosis associated with the presentation includes <Liudmila Hardy NP - Last Filed: 04/13/22 11:44> Lab Data Labs: Lab Results 04/13/22 04/13/22 Range/Units 10:37 10:37 Urine Color Yellow Urine Appearance Clear Urine pH 7.0 (5.0-9.0) Ur Specific Delight <= 1.005 (1.005-1.025) Urine Protein Negative (Neg-Trace) mg/dL Urine Glucose (UA) Negative (Negative) mg/dL Urine Ketones Negative (Negative) mg/dL Urine Blood Negative (Negative) Urine Nitrite Negative (Negative) Ur Leukocyte Esterase Trace H (Negative) Urine RBC 0-2 (0-2) /HPF Urine WBC 0-5 (0-5) /HPF Ur Squamous Epith Cells 0-2 (0-2) /HPF Urine Bacteria None Seen (None Seen) Hyaline Casts 0-2 (0-2) /LPF Urine Test NEGATIVE (NEGATIVE) <Liudmila Hardy NP - Last Filed: 04/13/22 11:44> Lab Results 04/13/22 04/13/22 Range/Units 10:37 10:37 Urine Color Yellow Urine Appearance Clear Urine pH 7.0 (5.0-9.0) Ur Specific Delight <= 1.005 (1.005-1.025) Urine Protein Negative (Neg-Trace) mg/dL Urine Glucose (UA) Negative (Negative) mg/dL Urine Ketones Negative (Negative) mg/dL Urine Blood Negative (Negative) Urine Nitrite Negative (Negative) Ur Leukocyte Esterase Trace H (Negative) Urine RBC 0-2 (0-2) /HPF Urine WBC 0-5 (0-5) /HPF Ur Squamous Epith Cells 0-2 (0-2) /HPF Urine Bacteria None Seen (None Seen) Hyaline Casts 0-2 (0-2) /LPF Urine Test NEGATIVE (NEGATIVE) <Thomas Allen MD - Last Filed: 04/13/22 16:07> Attestation Attending Attestation: I personally reviewed PA/resident/nurse practitioner note. I reviewed a all results and treatment plan. I agree with the assessment and plan. I agree with disposition <Thomas Allen MD - Last Filed: 04/13/22 16:07> Discharge Plan Discharge Clinical Impression: Nausea <Liudmila Hardy NP - Last Filed: 04/13/22 11:44> Patient Disposition: Home, Self-Care <Liudmila Hardy NP - Last Filed: 04/13/22 11:44> Instructions: Acute Nausea and Vomiting (ED) <Liudmila Hardy NP - Last Filed: 04/13/22 11:44> Additional Instructions: test is negative. Continue to retest in several days. There are several centers in [place] that you may go that are free ([facility], [facility]) <Liudmila Hardy NP - Last Filed: 04/13/22 11:44> Prescriptions: No Action nitrofurantoin monohyd/m-cryst [Macrobid] 100 mg capsule 100 mg PO Q12H 5 Days Qty: 10 0RF Rx Instructions: must administer with a meal/food metronidazole [Flagyl] 500 mg tablet 500 mg PO BID 7 Days Qty: 14 0RF naproxen [Naprosyn] 500 mg tablet 500 mg PO BID Qty: 20 0RF promethazine 12.5 mg tablet 12.5 mg PO TID PRN (Reason: nausea and vomiting) Qty: 14 0RF Rx Instructions: 3 doses during day; last dose no later than 4 hr before bedtime ondansetron 4 mg tablet,disintegrating 4 mg PO Q6H PRN (Reason: nausea and vomiting) Qty: 14 0RF loperamide 2 mg capsule 2 mg PO Q6H PRN (Reason: loose stool) Qty: 14 0RF acetaminophen 500 mg capsule 500 mg PO Q6H PRN (Reason: fever or pain) Qty: 20 0RF <Liudmila Hardy NP - Last Filed: 04/13/22 11:44> Referrals: Physician,None [Primary Care Provider] - <Liudmila Hardy NP - Last Filed: 04/13/22 11:44> Interventions: ED Discharge Assessment Last Done: 04/13/22 11:28 <Liudmila Hardy NP - Last Filed: 04/13/22 11:44> Discharge Date/Time: 04/13/22 11:29 <Liudmila Hardy NP - Last Filed: 04/13/22 11:44>
[2022-04-13 10:49] LABS: Appearance Urine Clear; Color Urine Yellow; Glucose Urine UA Negative (Negative); Leukocyte Esterase Urine Trace (Negative); Nitrite Urine Negative (Negative); Specific Gravity - Urine <= 1.005 (1.005-1.025); UMIC TRIGGER UACC YES; Urine Blood Negative (Negative); Urine Ketones Negative (Negative); Urine Protein Negative (Neg-Trace)
[2022-04-13 10:50] LABS: UPreg QC Valid YES; Urine Pregnancy NEGATIVE (NEGATIVE)
[2022-04-13 10:54] LABS: Bacteria Urine None Seen (None Seen); Hyaline Casts Urine 0-2 /LPF (0-2); RBC Urine 0-2 /HPF (0-2); Squamous Epithelial Cell Urine 0-2 /HPF (0-2); WBC Urine 0-5 /HPF (0-5)
[2022-04-13 10:58] VITALS: BP 111/57; PULSE 63; RESP 14; TEMP 36.2; O2SAT 100
== END 2022-04-13 11:29 | disposition home or self-care (01) ==
PROVIDERS: Emergency Provider Emergency Medicine
DX: R11.0 Nausea (principal); N94.89 Other specified conditions associated with female genital organs and menstrual cycle
CPT/HCPCS: 81001; 81025; 99282; 99283

== ENCOUNTER 2022-09-21 15:08 | Outpatient (REF) | payer MEDICAID, SELFPAY ==
--- NOTE | ~2022-09-21 | XR_ITS ---
EXAMINATION: XR ANKLE, LEFT CLINICAL INFORMATION: Patient stated she had a fall at a young girl, she had left ankle pain with weightbearing worsening COMPARISON: 01/09/2020 TECHNIQUE: AP, oblique and 2 lateral views of the left ankle. FINDINGS: Diffuse soft tissue swelling at the ankle with a joint effusion. Fracture of the medial malleolus with mild displacement was not previously identified. Mild periosteal reaction along the distal medial shaft of the tibia was not previously identified. XR/XR ankle LT min 3V IMPRESSION: 1. Fracture of the medial malleolus with mild displacement was not previously identified. 2. Mild periosteal reaction along the distal medial shaft of the tibia was not previously identified. 3. Orthopedic consultation and MRI of the left ankle recommended for further evaluation. The study was presented today 10/08/2022 at 9:26 AM for interpretation. PSA staff will provide results to referring provider at this time.
== END 2022-09-21 15:09 | disposition home or self-care (01) ==
LOC: HO.HHCX 15:08
PROVIDERS: Visit Provider Nurse Practitioner Family
DX: M25.572 Pain in left ankle and joints of left foot (principal)
CPT/HCPCS: 73610

== ENCOUNTER 2022-10-26 19:36 | Outpatient (REF) | payer MEDICAID, SELFPAY ==
[2022-11-03 03:14] LABS: HPV mRNA E6/E7 rflx Not Detected (Not Detected)
== END 2022-10-26 19:37 | disposition home or self-care (01) ==
LOC: HO.HHCLNP 19:36
PROVIDERS: Visit Provider Nurse Practitioner Family
DX: Z12.4 Encounter for screening for malignant neoplasm of cervix (principal); Z11.51 Encounter for screening for human papillomavirus (HPV)
CPT/HCPCS: 87624; 88142

== ENCOUNTER 2023-10-19 08:13 | Emergency (ER) | payer SELFPAY ==
[2023-10-19 08:18] VITALS: BP 131/79; PULSE 68; RESP 18; TEMP 36.9; O2SAT 98; BMI 26.3
[2023-10-19 09:17] VITALS: BP 131/79; PULSE 68; RESP 18; TEMP 36.9; O2SAT 98
[2023-10-19] MEDS: Amoxicillin/Potassium Clav 875 MG TABLET PO (09:17)
--- NOTE | 2023-10-19 09:35 | ED.EAR ---
HPI - Ear Problem General Chief complaint: Ear Problems Stated complaint: R ear infection Time Seen by Provider: 10/19/23 08:22 Source: patient Mode of arrival: ambulatory Limitations: no limitations History of Present Illness HPI Narrative: Patient is a 23-year-old female who presents emergency department for evaluation of right ear pain. She reports onset was approximately 1 week ago, her ear feels clogged and she has had some muffled hearing. She reports a history of recurrent ear infections, she has had multiple tympanostomy tubes placed. She states her most recent tubes were placed in approximately 2015, she acknowledges that they are typically supposed to be changed every 3-4 years, however she moved from [place] where her prior ENT specialist was, and has never since followed with a specialist. She does admit that last week she was swimming at the beach as well as in a chlorinated pool, she tries to avoid water getting into the ears but she is not certain whether this occurred. She reports significant pain and drainage from the right ear. Left ear is unaffected. She denies additional URI symptoms. No fevers or chills Related Data Previous Rx's ?Medication ?Instructions ?Recorded nitrofurantoin 100 mg PO Q12H 5 days #10 caps 01/09/20 monohydrate/macrocrystals 100 mg capsule (Macrobid) metronidazole 500 mg tablet 500 mg PO BID BACTERIAL VAGINOSIS 01/13/20 (Flagyl) 7 days #14 tabs naproxen 500 mg tablet (Naprosyn) 500 mg PO BID #20 tabs 08/17/20 acetaminophen 500 mg capsule 500 mg PO Q6H PRN fever or pain 03/09/22 #20 caps loperamide 2 mg capsule 2 mg PO Q6H PRN loose stool #14 03/09/22 caps ondansetron 4 mg disintegrating 4 mg PO Q6H PRN nausea and 03/09/22 tablet vomiting #14 tabs promethazine 12.5 mg tablet 12.5 mg PO TID PRN nausea and 03/10/22 vomiting #14 tabs amoxicillin 875 mg-potassium 1 tab PO BID #13 tabs 10/19/23 clavulanate 125 mg tablet ciprofloxacin 0.3 %-dexamethasone 4 drp otic (ears) BID 7 days #7.5 10/19/23 0.1 % ear drops,suspension mL ibuprofen 600 mg tablet 600 mg PO Q8H PRN fever or pain 10/19/23 #30 tabs Allergies Allergy/AdvReac Type Severity Reaction Status Date / Time No Known Allergies Allergy Verified 10/19/23 08:20 [No Known Allergies*] Review of Systems Review of Systems: Yes all other systems are reviewed and are negative [facility] Past Medical History Attestation statement: The following information was validated with the patient. Source: old records reviewed Medical History No known health problems No known health problems Social History Social History Alcohol intake: never Substance Use Type: Marijuana Advance Directives: No Advance Directives Information Provided: No Do you have a plan to hurt others: No Plan Physical Exam Vital Signs: Vital Signs: Last Vital Signs Temp 98.5 F 10/19/23 09:17 Pulse 68 10/19/23 09:17 Resp 18 10/19/23 09:17 BP 131/79 10/19/23 09:17 Pulse Ox 98 10/19/23 09:17 O2 Del Method Room Air 10/19/23 09:17 BMI result Body Mass Index 26.3 Appearance: Alert.?Oriented to person, place and time. No acute distress.?Normal affect. Eyes: Pupils equal, round and reactive to light.? ENT: Pharynx normal.??Left external ear normal, ear canal within normal range, tympanostomy tube is noted. Right TM is erythematous and bulging, external canal with copious purulent discharge, unable to visualize a tympanostomy tube, she has tenderness upon palpation of the tragus, auricle is without swelling or abnormality, no mastoid tenderness upon palpation. Neck: Normal inspection.? Neck supple.??No cervical adenopathy CVS: Heart sounds normal. Normal heart rate and rhythm.? Pulses normal.?? Respiratory: No respiratory distress.? Lung sounds clear to auscultation bilaterally?? Abdomen: Soft and non-tender. Normoactive bowel sounds. Skin: Skin warm and dry.? Normal skin color.? Extremities: No lower extremity edema.? Neuro: Moves all extremities spontaneously. Sensation intact bilaterally. Ambulates with normal steady gait. Medications Administered Discontinued Medications Generic Name Dose Route Start Last Admin Trade Name Freq PRN Reason Stop Dose Admin Amoxicillin/Clavulanate Potassium 875 mg 10/19/23 09:01 10/19/23 09:17 Amoxicillin/Potassium Clav 875 Mg Tablet PO 10/19/23 09:02 875 mg ONCE ONE Administration Medical Decision Making Medical Decision Making [facility] Narrative: Patient is a 23-year-old female with past medical history of recurrent ear infections tympanostomy tubes presenting to emergency department for evaluation of right ear pain as per HPI. On examination has findings concerning for acute otitis media and otitis externa, I discussed with patient I am unable to visualize the tympanostomy tube on the right, she denies having noticed it falling out in any recent past since its initial insertion 2015, however it may be covered by the copious amount of purulent drainage that is within her canal. She has no mastoid tenderness to suggest mastoiditis, would defer CT imaging at this time. I have provided her with treatment including Augmentin and Ciprodex drops, advised the importance of strict outpatient follow-up with an ENT specialist, given that she now has state funded [facility] insurance advised she may have difficulty seeing her prior specialist in [place], however she may very well contact their office, and provided her with contact information for local ENTs as well. She will follow-up with her primary care provider next week. We discussed worrisome signs and symptoms that would warrant re-evaluation in the emergency department. All questions answered. Stable for discharge. Differential Diagnosis Differential Diagnoses: The differential diagnosis associated with the presentation includes (See narrative above) External Record Review External record reviewed: Outpatient record Prescription Management I considered prescription management with: Pain Medication and Antibiotic Discharge Plan Discharge Clinical Impression: Otitis externa, Acute otitis media Patient Disposition: Home, Self-Care Instructions: Otitis Externa (ED), Ear Infection (ED) Additional Instructions: I have sent prescriptions for antibiotic drops and to take by mouth to your pharmacy please complete the entire course. You can take ibuprofen 200 mg, 3 tablets (600mg) every 6-8 hours as needed for pain, in addition to Tylenol 500 mg, 2 tablets (1,000mg) every 4-6 hours as needed for pain, but not to exceed 3 doses daily (3,000mg).? As discussed, it is very important that you re-establish care with a new Ear Nose Throat provider that is local. You may contact your insurance to determine offices that except your insurance. There is an ENT office associated with our hospital, you may try contacting their office; Dr. Fung, phone number has been attached for you There was also [facility] located at [address] in [place], [place], phone numbers [phone] You may return back to emergency department with any new or worsening symptoms or concerns. Prescriptions: New amoxicillin-pot clavulanate 875-125 mg tablet 1 tab PO BID Qty: 13 0RF ciprofloxacin-dexamethasone 0.3-0.1 % drops,suspension 4 drp otic (ears) BID 7 Days Qty: 7.5 0RF ibuprofen 600 mg tablet 600 mg PO Q8H PRN (Reason: fever or pain) Qty: 30 0RF No Action nitrofurantoin monohyd/m-cryst [Macrobid] 100 mg capsule 100 mg PO Q12H 5 Days Qty: 10 0RF Rx Instructions: must administer with a meal/food metronidazole [Flagyl] 500 mg tablet 500 mg PO BID 7 Days Qty: 14 0RF naproxen [Naprosyn] 500 mg tablet 500 mg PO BID Qty: 20 0RF promethazine 12.5 mg tablet 12.5 mg PO TID PRN (Reason: nausea and vomiting) Qty: 14 0RF Rx Instructions: 3 doses during day; last dose no later than 4 hr before bedtime ondansetron 4 mg tablet,disintegrating 4 mg PO Q6H PRN (Reason: nausea and vomiting) Qty: 14 0RF loperamide 2 mg capsule 2 mg PO Q6H PRN (Reason: loose stool) Qty: 14 0RF acetaminophen 500 mg capsule 500 mg PO Q6H PRN (Reason: fever or pain) Qty: 20 0RF Referrals: Guanakito Fung [Physician] - Physician,Unknown J [Primary Care Provider] - Interventions: ED Discharge Assessment Last Done: 10/19/23 09:17 Discharge Date/Time: 10/19/23 09:18 Print Language: Portuguese
== END 2023-10-19 09:18 | disposition home or self-care (01) ==
PROVIDERS: Emergency Provider Emergency Medicine
DX: H66.91 Otitis media, unspecified, right ear (principal); H60.91 Unspecified otitis externa, right ear; H92.01 Otalgia, right ear
CPT/HCPCS: 99282; 99283

== ENCOUNTER 2024-01-22 17:37 | Emergency (ER) | payer MEDICAID, SELFPAY ==
--- NOTE | 2024-01-22 | ECG_ITS ---
Test Reason : CHEST PAIN Blood Pressure : / mmHG Vent. Rate : 080 BPM Atrial Rate : 080 BPM P-R Int : 142 ms QRS Dur : 078 ms QT Int : 372 ms P-R-T Axes : 033 031 031 degrees QTc Int : 429 ms Normal sinus rhythm Normal ECG No previous ECGs available Referred By: Generic ED Physician Electronically Signed By:ALEX HOLLOWAY
--- NOTE | ~2024-01-22 | XR_ITS ---
EXAMINATION: XR ankle LT min 3V CLINICAL INFORMATION: left ankile swelling COMPARISON: 01/22/24 TECHNIQUE: AP, lateral, and oblique views of the left foot. FINDINGS: * Degenerative changes of the foot. Old medial malleolar fracture. * Joint spaces are maintained. * No soft tissue abnormality. XR/XR ankle LT min 3V IMPRESSION: Degenerative changes of the foot. Old medial malleolar fracture. Electronically signed by: Katelynn Choe MD 01/22/2024 08:01 PM EDT
--- NOTE | ~2024-01-22 | XR_ITS ---
EXAMINATION: XR FOOT, LEFT CLINICAL INFORMATION: Left foot swelling COMPARISON: Left ankle radiographs 01/22/2024 TECHNIQUE: AP, lateral, and oblique views of the left foot. FINDINGS: The alignment is normal. No fracture, dislocation or acute osseous abnormality. No joint space narrowing is seen. A corticated density at the tip of the medial malleolus does not appear acute. XR/XR foot LT min 3V IMPRESSION: Normal alignment. No acute osseous abnormality is seen. No joint space narrowing is seen. Electronically signed by: Rashaad Pisano MD 01/22/2024 08:12 PM EDT
--- NOTE | ~2024-01-22 | XR_ITS ---
EXAMINATION: XR CHEST CLINICAL INFORMATION: Chest pain COMPARISON: 03/14/2022 TECHNIQUE: Frontal view of the chest was obtained. FINDINGS: No significant abnormality is noted involving the heart, lungs, mediastinum, bony thorax or soft tissues. XR/XR chest 1V IMPRESSION: Unremarkable examination. Electronically signed by: Rashaad Pisano MD 01/22/2024 09:09 PM EDT RP
--- NOTE | ~2024-01-22 | US_ITS ---
EXAMINATION: US TRIPLEX LOWER EXTREMITY, LEFT CLINICAL INFORMATION: Left foot and ankle swelling COMPARISON: None available. TECHNIQUE: Color-flow triplex imaging with spectral analysis and compression Doppler were performed on the left lower extremity. FINDINGS: Respiratory variation, normal compression and augmented flow are noted throughout the left lower extremity. The visualized common femoral vein, superficial femoral vein, profunda femoral vein, popliteal vein and midcalf peroneal and posterior tibial venous segments show no evidence of deep venous thrombosis. There is a 2.2 x 1.0 x 1.1 cm popliteal fossa fluid collection. There Are multiple prominent left inguinal lymph nodes. US/US venous duplex LE LT IMPRESSION: No evidence of deep venous thrombosis involving the left lower extremity. Electronically signed by: Virginia Valdes MD 01/22/2024 06:54 PM EDT
[2024-01-22 17:54] VITALS: BP 133/92; PULSE 84; RESP 16; TEMP 36.8; O2SAT 99; BMI 27.9
--- NOTE | 2024-01-22 18:04 | ED.CHESTPAIN ---
HPI - Chest Pain General Chief Complaint: Chest Pain Stated Complaint: Chest pain, hard to breath, Anxiety ? L Foot Pain Time Seen by Provider: 01/22/24 19:41 History of Present Illness HPI narrative: Patient is a 23-year-old female presented today with having chest pain for the last 4 days. Patient claims the chest pain is dull. It is mid chest. Not associated with exertion. Not associated shortness of breath. There is no diaphoresis. She does feel somewhat anxious. Denies any leg swelling but does have some pain to the ankle area. Denies any history of blood clot. Denies any history of traveling. Patient is from home. No coughing or congestion or upper respiratory symptoms. No diaphoresis. Related Data Previous Rx's ?Medication ?Instructions ?Recorded nitrofurantoin 100 mg PO Q12H 5 days #10 caps 01/09/20 monohydrate/macrocrystals 100 mg capsule (Macrobid) metronidazole 500 mg tablet 500 mg PO BID BACTERIAL VAGINOSIS 01/13/20 (Flagyl) 7 days #14 tabs naproxen 500 mg tablet (Naprosyn) 500 mg PO BID #20 tabs 08/17/20 acetaminophen 500 mg capsule 500 mg PO Q6H PRN fever or pain 03/09/22 #20 caps loperamide 2 mg capsule 2 mg PO Q6H PRN loose stool #14 03/09/22 caps ondansetron 4 mg disintegrating 4 mg PO Q6H PRN nausea and 03/09/22 tablet vomiting #14 tabs promethazine 12.5 mg tablet 12.5 mg PO TID PRN nausea and 03/10/22 vomiting #14 tabs amoxicillin 875 mg-potassium 1 tab PO BID #13 tabs 10/19/23 clavulanate 125 mg tablet ciprofloxacin 0.3 %-dexamethasone 4 drp otic (ears) BID 7 days #7.5 10/19/23 0.1 % ear drops,suspension mL ibuprofen 600 mg tablet 600 mg PO Q8H PRN fever or pain 10/19/23 #30 tabs Allergies Allergy/AdvReac Type Severity Reaction Status Date / Time No Known Allergies Allergy Verified 01/22/24 17:59 [No Known Allergies*] Review of Systems Review of Systems: No fever no chills positive chest pain or diaphoresis Yes all other systems are reviewed and are negative [facility] Past Medical History Attestation statement: The following information was validated with the patient. Medical History No known health problems No known health problems Social History Social History Alcohol intake: never Substance Use Type: Marijuana Advance Directives: No Advance Directives Information Provided: No Physical Exam Vital Signs: Vital Signs: Last Vital Signs Temp 98.1 F 01/22/24 19:43 Pulse 68 01/22/24 19:43 Resp 20 01/22/24 19:43 BP 121/64 01/22/24 19:43 Pulse Ox 100 01/22/24 19:43 O2 Del Method Room Air 01/22/24 19:43 BMI result Body Mass Index 27.9 Appearance: Alert. Oriented X3. No acute distress. Eyes: Pupils equal, round and reactive to light. ENT: Pharynx normal. Neck: Normal inspection. Neck supple. No lymph nodes noted. No crepitus CVS: Normal heart rate and rhythm. Pulses normal. Normal S1 and S2 Respiratory: No respiratory distress. Breath sounds normal. No Wheezing. No rales Abdomen: Soft and nontender. No rigidity. No distention. good BS x4 Skin: Skin warm and dry. Normal skin color. Normal skin turgor. Extremities: No lower extremity edema. Neurovascular intact to all extremities. No Lacerations. No Rash. Examination of the left lower extremity showed no calf tenderness. There is no swelling to the ankle. There is no tenderness on palpation of the malleolus there is no tenderness on palpation at the base of the 5th metatarsal. There is good dorsiflexion and plantar flexion. Did good distal pulses at dorsalis pedis. Able to move her toes capillary refill less than 2 seconds Neuro: Oriented X 3. No motor deficit. No sensory deficit. Moving all extermities. No slurred speech Course Course Course Narrative: RME: 23-year-old female presents to ED for intermittent nonradiating sternal chest pain for the past 4 days with shortness of breath. Patient also states left foot pain swelling for the past 2 weeks. Patient states history of left foot fracture. On exam lungs are clear heart size normal. Left foot lower ankle swollen. Will send for EKG blood work x-ray ultrasound. Medical Decision Making Medical Decision Making [facility] Narrative: My interpretation of her EKG showed a sinus rhythm heart rate is 90 UT QRS QTC was normal there is no acute ST segment elevation noted. I reviewed patient's vascular lab which showed negative DVT. Patient's troponin is negative. In the setting of patient being 23 years old with no significant cardiac risk atypical history patient's heart score is less than 3. Chest x-ray is still pending. X-ray of the ankle is still pending Differential Diagnosis Differential Diagnoses: The differential diagnosis associated with the presentation includes DVT, pneumonia, pneumothorax Admission/Observation Consideration of admission/observation: Escalation of care including admission/observation considered Lab Data [facility] Lab Attestation statement: I reviewed the patient's lab results. 01/22/24 19:24 01/22/24 19:24 Labs: Lab Results 01/22/24 Range/Units 19:24 WBC 9.7 (4.8-10.8) X10*3/uL RBC 4.12 L D (4.20-5.50) X10*6/uL Hgb 12.4 (12.0-16.0) g/dl Hct 37.1 (37.0-47.0) % MCV 90.0 (80.0-98.0) fL MCH 30.1 (27.0-33.0) pg MCHC 33.4 (31.0-35.0) g/dl RDW 12.3 (11.0-16.0) % Plt Count 347 D (160-400) X10*3/uL MPV 9.3 L (9.4-12.3) fL Immature Gran % (Auto) 0.1 (0.0-0.4) % Neut % (Auto) 55.7 (45-73) % Lymph % (Auto) 36.4 (20-40) % Dubois % (Auto) 4.6 (2-11) % Eos % (Auto) 2.7 (0-4) % Baso % (Auto) 0.5 (0-2) % Lymph # (Auto) 3.5 (1.2-4.9) X10*3/uL [place] # (Auto) 0.5 (0.1-1.2) X10*3/uL Eos # (Auto) 0.3 (0.0-0.4) X10*3/uL Baso # (Auto) 0.1 (0.0-0.2) X10*3/uL Abs Immat Gran (auto) 0.01 (0.00-0.03) X10*3/uL Absolute Neuts (auto) 5.4 (2.0-8.3) x10*3/uL Absolute Nucleated RBC 0.000 (0.0-0.012) X10*3/uL Nucleated RBC % (auto) 0.0 (0.0-0.2) /100WBC PT 11.6 (10.9-12.4) SEC INR 1.0 (0.9-1.1) APTT 33.6 (26.0-36.8) SEC Sodium 142 (135-145) mmol/L Potassium 3.9 (3.3-5.1) mmol/L Chloride 107 (96-108) mmol/L Carbon Dioxide 27 (22-29) mmol/L Anion Gap 12 (12-20) BUN 14 (9-16) mg/dL Creatinine 0.73 (0.5-1.4) mg/dL Estim Creat Clear Calc 107.4 Estimated GFR > 60 Random Glucose 90 (60-115) mg/dL Calcium 9.2 D (8.4-10.2) mg/dL Total Bilirubin 0.5 (0.0-1.0) mg/dL AST 18 (5-31) U/L ALT 8 (0-31) U/L Alkaline Phosphatase 61 (39-117) U/L Troponin I High Sens < 2.7 (<3.5-17.0) ng/L Total Protein 7.5 (6.5-8.0) g/dL Albumin 4.4 (3.5-5.0) g/dL Independent Interpretation I performed an independent interpretation of an: EKG (My interpretation of patient's EKG showed a sinus rhythm heart rate is 80 UT QRS QTC normal no acute ST segment elevation noted.) and Plain X-Ray (My interpretation patient's chest x-ray is grossly negative.) Radiology Impression Discussion of test interpretation with radiology: I have reviewed the radiologist's reading. Discharge Plan Discharge Clinical Impression: Chest pain Patient Disposition: Home, Self-Care Instructions: Chest Pain (ED) Prescriptions: No Action nitrofurantoin monohyd/m-cryst [Macrobid] 100 mg capsule 100 mg PO Q12H 5 Days Qty: 10 0RF Rx Instructions: must administer with a meal/food metronidazole [Flagyl] 500 mg tablet 500 mg PO BID 7 Days Qty: 14 0RF naproxen [Naprosyn] 500 mg tablet 500 mg PO BID Qty: 20 0RF promethazine 12.5 mg tablet 12.5 mg PO TID PRN (Reason: nausea and vomiting) Qty: 14 0RF Rx Instructions: 3 doses during day; last dose no later than 4 hr before bedtime ondansetron 4 mg tablet,disintegrating 4 mg PO Q6H PRN (Reason: nausea and vomiting) Qty: 14 0RF loperamide 2 mg capsule 2 mg PO Q6H PRN (Reason: loose stool) Qty: 14 0RF acetaminophen 500 mg capsule 500 mg PO Q6H PRN (Reason: fever or pain) Qty: 20 0RF amoxicillin-pot clavulanate 875-125 mg tablet 1 tab PO BID Qty: 13 0RF ciprofloxacin-dexamethasone 0.3-0.1 % drops,suspension 4 drp otic (ears) BID 7 Days Qty: 7.5 0RF ibuprofen 600 mg tablet 600 mg PO Q8H PRN (Reason: fever or pain) Qty: 30 0RF Referrals: Yasmani Gonsalez MD [Physician] - 01/24/24 Print Language: Yoruba
[2024-01-22 19:28] LABS: MANUAL DIFF FLAG NO
[2024-01-22 19:40] LABS: Basophils Absolute Auto 0.1 X10*3/uL (0.0-0.2); Basophils Percent Auto 0.5 % (0-2); Eosinophils Absolute Auto 0.3 X10*3/uL (0.0-0.4); Eosinophils Percent Auto 2.7 % (0-4); Hematocrit 37.1 % (37.0-47.0); Hemoglobin 12.4 g/dl (12.0-16.0); Imm Gran Abs Auto 0.01 X10*3/uL (0.00-0.03); Imm Gran Pct Auto 0.1 % (0.0-0.4); Lymphocytes Absolute Auto 3.5 X10*3/uL (1.2-4.9); Lymphocytes Percent Auto 36.4 % (20-40); Mean Corpuscular HGB Conc 33.4 g/dl (31.0-35.0); Mean Corpuscular Hemoglobin 30.1 pg (27.0-33.0); Mean Platelet Volume 9.3 fL (9.4-12.3); Monocytes Absolute Auto 0.5 X10*3/uL (0.1-1.2); Monocytes Percent Auto 4.6 % (2-11); Neutrophils Absolute Auto 5.4 x10*3/uL (2.0-8.3); Neutrophils Percent Auto 55.7 % (45-73); Platelet Count 347 X10*3/uL (160-400); Prothrombin Time 11.6 SEC (10.9-12.4); Red Blood Count 4.12 X10*6/uL (4.20-5.50); Red Cell Distribution Width 12.3 % (11.0-16.0); White Blood Count 9.7 X10*3/uL (4.8-10.8)
[2024-01-22 19:43] VITALS: BP 121/64; PULSE 68; RESP 20; TEMP 36.7; O2SAT 100
[2024-01-22 19:43] LABS: Partial Thromboplastin Time 33.6 SEC (26.0-36.8)
[2024-01-22 19:44] LABS: Alanine Aminotransferase 8 U/L (0-31); Albumin Level 4.4 g/dL (3.5-5.0); Alkaline Phosphatase 61 U/L (39-117); Anion Gap 12 (12-20); Aspartate Amino Transferase 18 U/L (5-31); Bilirubin Total 0.5 mg/dL (0.0-1.0); Blood Urea Nitrogen 14 mg/dL (9-16); Calcium 9.2 mg/dL (8.4-10.2); Carbon Dioxide 27 mmol/L (22-29); Chloride 107 mmol/L (96-108); Creatinine Clr Calc Pharmacy 107.4; Estimated Glomerular Filt Rate > 60; Glucose Random 90 mg/dL (60-115); Potassium 3.9 mmol/L (3.3-5.1); Sodium 142 mmol/L (135-145); Total Protein 7.5 g/dL (6.5-8.0)
[2024-01-22 19:51] LABS: Troponin-I High Sensitivity < 2.7 ng/L (<3.5-17.0)
[2024-01-22 22:17] VITALS: BP 114/64; PULSE 59; RESP 18; TEMP 36.7; O2SAT 98
--- NOTE | 2024-01-22 22:23 | PC.NURSE ---
this nurse only reviewed discharge instruction with pt. pt verbalized understanding, no sign of distress upon discharge.
[2024-01-22 22:25] VITALS: BP 114/64; PULSE 59; RESP 18; TEMP 36.7; O2SAT 98
== END 2024-01-22 22:25 | disposition home or self-care (01) ==
PROVIDERS: Physician Assistant; Emergency Provider Emergency Medicine Emergency Medical Services
DX: R07.9 Chest pain, unspecified (principal); R06.02 Shortness of breath; F41.9 Anxiety disorder, unspecified; M79.605 Pain in left leg; M79.89 Other specified soft tissue disorders; M25.572 Pain in left ankle and joints of left foot; Z79.899 Other long term (current) drug therapy
CPT/HCPCS: 36415; 71045; 73610; 73630; 80053; 84484; 85025; 85610; 85730; 93005; 93971; 99284

== ENCOUNTER → 2024-01-22 17:43 | Outpatient (BNV) | payer MEDICAID, SELFPAY | PROVIDERS: Emergency Provider Emergency Medicine Emergency Medical Services; Visit Provider Internal Medicine | DX: R07.9 Chest pain, unspecified (principal) | CPT/HCPCS: 93010 ==

== ENCOUNTER 2024-02-24 19:11 | Outpatient (REF) | payer MEDICAID, SELFPAY ==
[2024-02-25 07:29] LABS: CT PCR NOT DETECTED (Not Detect.); NG PCR NOT DETECTED (Not Detect.)
== END 2024-02-24 19:12 | disposition home or self-care (01) ==
LOC: HO.HHCLNP 19:11
PROVIDERS: Visit Provider Nurse Practitioner Family
DX: Z20.2 Contact with and (suspected) exposure to infections with a predominantly sexual mode of transmission (principal)
CPT/HCPCS: 0352U; 87491; 87591

== ENCOUNTER 2024-07-12 19:46 | Emergency (ER) | payer MEDICAID, SELFPAY ==
[2024-07-12 19:48] VITALS: BP 109/49; BP 126/70; PULSE 50; PULSE 56; RESP 18; TEMP 36.8; O2SAT 94; O2SAT 98; BMI 24.9
--- NOTE | 2024-07-12 19:48 | ED_ITS ---
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 No diarrhea. States she has no STI or vaginal discharge concerns. She has no dysuria. States it all started suddenly. She went to [facility] and had labs, IVF, med and a normal CT scan - they discharged her after eating crackers. She was not sent home with any medications. She states she is exhausted and just keeps vomiting. NO recent travel, food exposures, sick contacts. MD elicited complaint: nausea, vomiting and abdominal pain Onset (ago): hour(s) (36) Description of vomiting: food contents and watery Associated nausea: Yes Associated abdominal pain: Yes Location of pain: suprapubic Radiation: diffuse Pain consistency: constant Severity: moderate Quality: aching Exacerbating factors: none Relieving factors: none Context: other Associated symptoms: malaise, nausea/vomiting and weakness Treatment prior to arrival: other Related Data Previous Rx's ?Medication ?Instructions ?Recorded nitrofurantoin 100 mg PO Q12H 5 days #10 caps 01/09/20 monohydrate/macrocrystals 100 mg capsule (Macrobid) metronidazole 500 mg tablet 500 mg PO BID BACTERIAL VAGINOSIS 01/13/20 (Flagyl) 7 days #14 tabs naproxen 500 mg tablet (Naprosyn) 500 mg PO BID #20 tabs 08/17/20 acetaminophen 500 mg capsule 500 mg PO Q6H PRN fever or pain 03/09/22 #20 caps loperamide 2 mg capsule 2 mg PO Q6H PRN loose stool #14 03/09/22 caps ondansetron 4 mg disintegrating 4 mg PO Q6H PRN nausea and 03/09/22 tablet vomiting #14 tabs promethazine 12.5 mg tablet 12.5 mg PO TID PRN nausea and 03/10/22 vomiting #14 tabs amoxicillin 875 mg-potassium 1 tab PO BID #13 tabs 10/19/23 clavulanate 125 mg tablet ciprofloxacin 0.3 %-dexamethasone 4 drp otic (ears) BID 7 days #7.5 10/19/23 0.1 % ear drops,suspension mL ibuprofen 600 mg tablet 600 mg PO Q8H PRN fever or pain 10/19/23 #30 tabs famotidine 20 mg tablet (Pepcid) 20 mg PO DAILY PRN abdominal 07/13/24 discomfort #30 tabs ondansetron 4 mg disintegrating 4 mg PO Q8H PRN nausea and 07/13/24 tablet vomiting #20 tabs Allergies Allergy/AdvReac Type Severity Reaction Status Date / Time No Known Allergies Allergy Verified 07/12/24 19:51 [No Known Allergies*] Review of Systems 2 Review of Systems: Constitutional : No Weight loss, No Fever, No Chills ENT/Mouth : No sore throat, No Rhinorrhea Eyes: No Swelling, No Redness Cardiovascular : No Chest Pain, No SOB, no edema Respiratory : No Cough, No Sputum, No Wheezing Gastrointestinal : Positive Nausea, Positive Vomiting, no Diarrhea, positive abdominal Pain, No Hematochezia, No Melena Genitourinary : No Dysuria, No Urinary Frequency, No Hematuria, No Urgency Musculoskeletal : No joint pain, No Myalgias, No Joint Swelling Skin : No Skin Lesions, No rash Neuro : No Weakness, No Numbness, No Dizziness, No Headache Psych : No Anxiety/Panic, No Depression Heme/Lymph: No Bruising, No Lymphadenopathy Endocrine : No Polyuria, No Polydipsia All other systems reviewed and are negative. Gastrointestinal: Gastrointestinal: Reports nausea PMFSH Past Medical History Attestation statement: The following information was validated with the patient. Source: old records reviewed Medical History No known health problems No known health problems Social History Social History (Updated 07/12/24 @ 21:58 by Michelle Almanza DO) Alcohol intake: never Patient Tobacco Use Status: Tobacco use Unknown Smoked in Last 30 Days: Yes Use of substances other than those prescribed or required for medical reasons: Yes Substance Use Type: Marijuana Substance Use Frequency: Chronic Longstanding Advance Directives: No Advance Directives Information Provided: No Patient : No Physical Exam 2 Vital Signs: Vital Signs: Last Vital Signs Temp 98.2 F 07/12/24 19:48 Pulse 56 07/12/24 19:48 Resp 18 07/12/24 19:48 BP 109/49 L 07/12/24 19:48 Pulse Ox 94 07/12/24 19:48 O2 Del Method Room Air 07/12/24 19:48 BMI result Body Mass Index 24.9 Appearance: Alert. Oriented X3. No acute distress. Eyes: Pupils equal, round and reactive to light. ENT: Pharynx normal. Neck: Normal inspection. Neck supple. CVS: Normal heart rate and rhythm. Pulses normal. Respiratory: No respiratory distress. Breath sounds normal. Abdomen: Soft and mild suprapubic ttp no rebound or guarding Skin: Skin warm and dry. Normal skin color. Normal skin turgor. Extremities: No lower extremity edema. No calf ttp Neuro: Oriented X 3. No motor deficit. No sensory deficit. CN2-12 intact Course Course Course Narrative: This is an RME performed by Rolando Pak CNP: Additional HPI, ROS, PE not included below will be deferred to primary provider. Patient is a 23-year-old female who presents to the emergency department via EMS for evaluation of nausea vomiting and abdominal pain with onset of symptoms yesterday morning. She reports that she was evaluated at [facility] yesterday was discharged from the emergency department today, reports that she had blood work, a CT scan, and a urine test done and was advised that everything was normal. States she was not discharged with any medications. She continues to vomit today, unable to tolerate oral intake, persistent diffuse lower abdominal pain. Plan: Serum labs, urinalysis, viral serologies, will attempt to obtain records from [facility] Medications Administered Discontinued Medications Generic Name Dose Route Start Last Admin Trade Name Justin PRN Reason Stop Dose Admin Diphenhydramine HCl 25 mg 07/12/24 21:24 07/12/24 22:07 Diphenhydramine Hcl 50 Mg/Ml Vial IVPUSH 07/12/24 21:25 25 mg ONCE ONE Administration Lactated Ringer's 1,000 mls @ 999 mls/hr 07/12/24 21:24 07/12/24 22:06 Lr IV 07/12/24 22:24 999 mls/hr .Q1H1M ONE Administration Prochlorperazine Edisylate 10 mg 07/12/24 21:24 07/12/24 22:07 Prochlorperazine Edisylate 10 Mg/2 Ml Vial IVPUSH 07/12/24 21:25 10 mg ONCE ONE Administration Medical Decision Making Medical Decision Making MDM Narrative: 23 yo female with no PMH here with c/o lower abdominal pain and n/v no diarrhea has no RLQ just above the bladder area I did ask her about STI she adamantly denies and has no vaginal discharge at this time will obtain labs, hydrate, obtain [facility] records and provide supportive medications. Differential Diagnosis Differential Diagnoses: The differential diagnosis associated with the presentation includes viral syndrome, , UTI Admission/Observation Consideration of admission/observation: Escalation of care including admission/observation considered called [facility] and looked into the system - no records of her visit ate ice cream stable for DC Lab Data MDM Lab Attestation statement: I reviewed the patient's lab results. 07/12/24 20:12 07/12/24 20:12 Labs: Lab Results 07/12/24 07/12/24 07/12/24 Range/Units 20:12 20:13 20:16 WBC 12.0 H (4.8-10.8) X10*3/uL RBC 3.99 L (4.20-5.50) X10*6/uL Hgb 12.3 (12.0-16.0) g/dl Hct 35.6 L (37.0-47.0) % MCV 89.2 (80.0-98.0) fL MCH 30.8 (27.0-33.0) pg MCHC 34.6 (31.0-35.0) g/dl RDW 12.6 (11.0-16.0) % Plt Count 319 (160-400) X10*3/uL MPV 9.6 (9.4-12.3) fL Immature Gran % (Auto) 0.3 (0.0-0.4) % Neut % (Auto) 80.3 H (45-73) % Lymph % (Auto) 12.3 L (20-40) % Dickson % (Auto) 6.9 (2-11) % Eos % (Auto) 0.1 (0-4) % Baso % (Auto) 0.1 (0-2) % Lymph # (Auto) 1.5 (1.2-4.9) X10*3/uL Dickson # (Auto) 0.8 (0.1-1.2) X10*3/uL Eos # (Auto) 0.0 (0.0-0.4) X10*3/uL Baso # (Auto) 0.0 (0.0-0.2) X10*3/uL Abs Immat Gran (auto) 0.04 H (0.00-0.03) X10*3/uL Absolute Neuts (auto) 9.7 H (2.0-8.3) x10*3/uL Absolute Nucleated RBC 0.000 (0.0-0.012) X10*3/uL Nucleated RBC % (auto) 0.0 (0.0-0.2) /100WBC Sodium 142 (135-145) mmol/L Potassium 3.6 (3.3-5.1) mmol/L Chloride 109 H (96-108) mmol/L Carbon Dioxide 24 (22-29) mmol/L Anion Gap 13 (12-20) BUN 13 (9-16) mg/dL Creatinine 0.60 (0.5-1.4) mg/dL Estim Creat Clear Calc 123.8 Estimated GFR > 60 Random Glucose 121 H (60-115) mg/dL Calcium 9.3 (8.4-10.2) mg/dL Total Bilirubin 0.6 (0.0-1.0) mg/dL Direct Bilirubin 0.2 (0.0-0.5) mg/dL AST 21 (5-31) U/L ALT 11 (0-31) U/L Alkaline Phosphatase 56 (39-117) U/L Total Protein 7.2 (6.5-8.0) g/dL Albumin 4.4 (3.5-5.0) g/dL Lipase 15 (8-78) U/L Beta HCG, Quant < 2 mIU/mL Urine Color Dark Yellow Urine Appearance Cloudy Urine pH 6.5 (5.0-9.0) Ur Specific [place] >= 1.030 H (1.005-1.025) Urine Protein 100 (2+) H (Neg-Trace) mg/dL Urine Glucose (UA) Negative (Negative) mg/dL Urine Ketones 15 (Negative) mg/dL Urine Blood Moderate (2+) H (Negative) Urine Nitrite Negative (Negative) Ur Leukocyte Esterase Negative (Negative) Urine RBC 11-20 H (0-2) /HPF Urine WBC 11-20 H (0-5) /HPF Ur Squamous Epith Cells 11-20 (0-2) /HPF Urine Bacteria Trace (None Seen) Hyaline Casts 0-2 (0-2) /LPF Urine Opiates Screen Not Detected (Not Detect) Ur Buprenorphine Scrn Not Detected (Not Detect) ng/mL Ur Oxycodone Screen Not Detected (Not Detect) ng/mL Urine Methadone Screen Not Detected (Not Detect) ng/mL Urine Fentanyl Screen Not Detected (Not Detect) Ur Barbiturates Screen Not Detected (Not Detect) Ur Phencyclidine Scrn Not Detected (Not Detect) Ur Amphetamines Screen Not Detected (Not Detect) U Benzodiazepines Scrn Not Detected (Not Detect) Urine Cocaine Screen Not Detected (Not Detect) U Marijuana (THC) Screen POSITIVE H (Not Detect) Influenza Type A (PCR) NEGATIVE (Negative) Influenza Type B (PCR) NEGATIVE (Negative) RSV RNA Qual (PCR) NEGATIVE (Negative) SARS-CoV-2 RNA (RT-PCR) NEGATIVE (Negative) External Record Review External record reviewed: Outpatient record Discharge Plan Discharge Clinical Impression: Nausea & vomiting Qualifiers: Vomiting type: unspecified Qualified Code(s): R11.2 - Nausea with vomiting, unspecified Patient Disposition: Home, Self-Care Instructions: Acute Nausea and Vomiting (ED) Additional Instructions: eat a bland diet for 48 hours return for fevers, worsening pain, unable to eat or any other concerns advance diet slowly and stay hydrated Prescriptions: New famotidine [Pepcid] 20 mg tablet 20 mg PO DAILY PRN (Reason: abdominal discomfort) Qty: 30 0RF ondansetron 4 mg tablet,disintegrating 4 mg PO Q8H PRN (Reason: nausea and vomiting) Qty: 20 0RF No Action nitrofurantoin monohyd/m-cryst [Macrobid] 100 mg capsule 100 mg PO Q12H 5 Days Qty: 10 0RF Rx Instructions: must administer with a meal/food metronidazole [Flagyl] 500 mg tablet 500 mg PO BID 7 Days Qty: 14 0RF naproxen [Naprosyn] 500 mg tablet 500 mg PO BID Qty: 20 0RF promethazine 12.5 mg tablet 12.5 mg PO TID PRN (Reason: nausea and vomiting) Qty: 14 0RF Rx Instructions: 3 doses during day; last dose no later than 4 hr before bedtime ondansetron 4 mg tablet,disintegrating 4 mg PO Q6H PRN (Reason: nausea and vomiting) Qty: 14 0RF loperamide 2 mg capsule 2 mg PO Q6H PRN (Reason: loose stool) Qty: 14 0RF acetaminophen 500 mg capsule 500 mg PO Q6H PRN (Reason: fever or pain) Qty: 20 0RF amoxicillin-pot clavulanate 875-125 mg tablet 1 tab PO BID Qty: 13 0RF ciprofloxacin-dexamethasone 0.3-0.1 % drops,suspension 4 drp otic (ears) BID 7 Days Qty: 7.5 0RF ibuprofen 600 mg tablet 600 mg PO Q8H PRN (Reason: fever or pain) Qty: 30 0RF Stand Alone Forms: Work/School Release Print Language: Zimbabwean
[2024-07-12 20:18] LABS: MANUAL DIFF FLAG NO
[2024-07-12 20:21] LABS: Basophils Percent Auto 0.1 % (0-2); Eosinophils Percent Auto 0.1 % (0-4); Hematocrit 35.6 % (37.0-47.0); Hemoglobin 12.3 g/dl (12.0-16.0); Imm Gran Abs Auto 0.04 X10*3/uL (0.00-0.03); Imm Gran Pct Auto 0.3 % (0.0-0.4); Lymphocytes Absolute Auto 1.5 X10*3/uL (1.2-4.9); Lymphocytes Percent Auto 12.3 % (20-40); Mean Corpuscular HGB Conc 34.6 g/dl (31.0-35.0); Mean Corpuscular Hemoglobin 30.8 pg (27.0-33.0); Mean Corpuscular Volume 89.2 fL (80.0-98.0); Mean Platelet Volume 9.6 fL (9.4-12.3); Monocytes Absolute Auto 0.8 X10*3/uL (0.1-1.2); Monocytes Percent Auto 6.9 % (2-11); Neutrophils Absolute Auto 9.7 x10*3/uL (2.0-8.3); Neutrophils Percent Auto 80.3 % (45-73); Platelet Count 319 X10*3/uL (160-400); Red Blood Count 3.99 X10*6/uL (4.20-5.50); Red Cell Distribution Width 12.6 % (11.0-16.0)
[2024-07-12 20:22] LABS: Appearance Urine Cloudy; Color Urine Dark Yellow; Glucose Urine UA Negative (Negative); Leukocyte Esterase Urine Negative (Negative); Nitrite Urine Negative (Negative); PH 6.5 (5.0-9.0); Specific Gravity - Urine >= 1.030 (1.005-1.025); UMIC TRIGGER UACC YES; Urine Blood Moderate (2+) (Negative); Urine Ketones 15 mg/dL (Negative); Urine Protein 100 (2+) mg/dL (Neg-Trace)
[2024-07-12 20:30] LABS: Bacteria Urine Trace (None Seen); Hyaline Casts Urine 0-2 /LPF (0-2); UACC Culture Trigger YES
[2024-07-12 20:40] LABS: Alanine Aminotransferase 11 U/L (0-31); Albumin Level 4.4 g/dL (3.5-5.0); Alkaline Phosphatase 56 U/L (39-117); Anion Gap 13 (12-20); Aspartate Amino Transferase 21 U/L (5-31); Bilirubin Direct 0.2 mg/dL (0.0-0.5); Bilirubin Total 0.6 mg/dL (0.0-1.0); Blood Urea Nitrogen 13 mg/dL (9-16); Calcium 9.3 mg/dL (8.4-10.2); Carbon Dioxide 24 mmol/L (22-29); Chloride 109 mmol/L (96-108); Creatinine Clr Calc Pharmacy 123.8; Estimated Glomerular Filt Rate > 60; Glucose Random 121 mg/dL (60-115); Lipase 15 U/L (8-78); Potassium 3.6 mmol/L (3.3-5.1); Sodium 142 mmol/L (135-145); Total Protein 7.2 g/dL (6.5-8.0)
[2024-07-12 21:02] LABS: Influenza A PCR NEGATIVE (Negative); Influenza B PCR NEGATIVE (Negative); Resp Syncy Virus RNA Qual PCR NEGATIVE (Negative); SARS COV2 PCR INHOUSE NEGATIVE (Negative)
[2024-07-12] MEDS: Lactated Ringers 1,000 ML 999 ML IV (22:06)
[2024-07-12] MEDS: Prochlorperazine Edisylate 10 MG/2 ML VIAL IVPUSH (22:07)
[2024-07-12] MEDS: diphenhydrAMINE HCL 50 MG/ML VIAL 25 MG IVPUSH (22:07)
[2024-07-12 23:03] LABS: HCG Quantitative < 2 mIU/mL
[2024-07-13 00:15] LABS: Amphetamine Screen Urine Not Detected (Not Detect); Barbiturates, Urine Not Detected (Not Detect); Benzodiazepines Screen Urine Not Detected (Not Detect); Buprenorphine Scr Not Detected (Not Detect); Cannabinoid Screen Urine POSITIVE (Not Detect); Cocaine Screen Urine Not Detected (Not Detect); Fentanyl, urine Not Detected (Not Detect); Methadone Screen, Urine Not Detected (Not Detect); Opiate Screen Urine Not Detected (Not Detect); Oxycodone Screen Urine Not Detected (Not Detect); Phencyclidine Screen Urine Not Detected (Not Detect)
[2024-07-13 00:48] VITALS: BP 132/64; PULSE 67; RESP 14; TEMP 36.9; O2SAT 98
[2024-07-13 00:52] VITALS: BP 132/64; PULSE 67; RESP 14; TEMP 36.9; O2SAT 98
== END 2024-07-13 00:53 | disposition home or self-care (01) ==
PROVIDERS: Nurse Practitioner Family; Emergency Provider Emergency Medicine
DX: R11.2 Nausea with vomiting, unspecified (principal); R10.30 Lower abdominal pain, unspecified; Z03.818 Encounter for observation for suspected exposure to other biological agents ruled out
CPT/HCPCS: 0241U; 80048; 80076; 80307; 81001; 83690; 84702; 85025; 87086; 96361; 96374; 96375; 99284; 99285; J0737; J1200; J7120